=== PATIENT | male | born 1985 | race Caucasian/White ===

== ENCOUNTER 2023-04-21 10:59 | Inpatient (IN) | payer MEDICAID, OTHER ==
[2023-04-21] MEDS ORDERED: SODIUM CHLORIDE 0.9% 500 ML 500 ML IV ONE (11:49)
[2023-04-21 12:10] LABS: Basophils # (A) 0.1 k/uL (0-0.2); Basophils % (A) 1 %; Eosinophils # (A) 0.1 k/uL (0-0.7); Eosinophils % (A) 1 %; HCT 54.6 % (39.0-53.0); HGB 17.9 gm/dL (13.0-17.5); Lymphocytes # (A) 3.5 k/uL (1.0-4.8); Lymphocytes % (A) 32 %; MCH 29.7 pg (25.0-35.0); MCHC 32.7 g/dL (31.0-37.0); MCV 90.7 fL (80.0-100.0); Mean Platelet Volume 8.5; Monocytes # (A) 0.4 k/uL (0-1.0); Monocytes % (A) 4 %; Neutrophils # (A) 6.5 k/uL (1.3-7.7); Neutrophils % (A) 60 %; Platelet Count 460 k/uL (150-450); RBC 6.03 m/uL (4.30-5.90); RDW 13.5 % (11.5-15.5); WBC 10.8 k/uL (3.8-10.6)
--- NOTE | 2023-04-21 12:29 | ED ---
General Adult HPI - General Source: patient, EMS, RN notes reviewed, old records reviewed Mode of arrival: EMS Limitations: altered mental status <Bebeto Verdugo - Last Filed: 04/30/23 09:57> <Gerardo Plunkett - Last Filed: 05/02/23 07:15> - General Chief complaint: Arrhythmia/Palpitations Stated complaint: Chest Pain, Combative Time Seen by Provider: 04/21/23 11:15 - History of Present Illness Initial comments: This is a 37-year-old male who was brought in by EMS. According to the report we got the patient had a pickup order and when the police got there the patient became extremely aggressive and fought the police would not come in without them constrain him. Patient is unable to give any history most and does not answer any questions directly and he does not make any sense. The police left before I could interview them. No ecchymosis the patient any further history. There is a petition on the chart. Patient also was tased by the police officers while they were trying to apprehend him to bring him in (Bebeto Verdugo) - Related Data Home Medications Medication Instructions Recorded Confirmed No Known Home Medications 04/21/23 04/21/23 Allergies Allergy/AdvReac Type Severity Reaction Status Date / Time Pertussis Vaccines Allergy Unknown Verified 04/21/23 11:22 seasonal allergies AdvReac runny Uncoded 04/21/23 11:22 nose/congestion Review of Systems ROS Other: All systems not noted in ROS Statement are negative. <Bebeto Verdugo - Last Filed: 04/30/23 09:57> ROS Other: All systems not noted in ROS Statement are negative. <Gerardo Plunkett - Last Filed: 05/02/23 07:15> ROS Statement: Those systems with pertinent positive or pertinent negative responses have been documented in the HPI. Past Medical History Past Medical History: Unable to Obtain History of Any Multi-Drug Resistant Organisms: None Reported Past Surgical History: Unable to Obtain Past Psychological History: No Psychological Hx Reported Smoking Status: Current every day smoker Past Alcohol Use History: Occasional Past Drug Use History: None Reported, Marijuana - Past Family History Father Family Medical History: Unable to Obtain Mother Family Medical History: No Reported History <Bebeto Verdugo - Last Filed: 04/30/23 09:57> General Exam Limitations: altered mental status <Bebeto Verdugo - Last Filed: 04/30/23 09:57> - General Exam Comments Initial Comments: GENERAL: Patient is well-developed and well-nourished. Patient is nontoxic and well- hydrated and is in no acute distress. ENT: Neck is soft and supple. No significant lymphadenopathy is noted. Oropharynx is clear. Moist mucous membranes. Neck has full range of motion without eliciting any pain. EYES: The sclera were anicteric and conjunctiva were pink and moist. Extraocular movements were intact and pupils were equal round and reactive to light. Eyelids were unremarkable. PULMONARY: Unlabored respirations. Good breath sounds bilaterally. No audible rales rhonchi or wheezing was noted. CARDIOVASCULAR: Patient is tachycardic about 115 beats a minute ABDOMEN: Soft and nontender with normal bowel sounds. SKIN: Patient has an abrasion to his forehead with a small hematoma. Patient has ab rasion to his left index finger. patient has a small superficial abrasion to his chest. NEUROLOGIC: Patient is alert and oriented 1. Cranial nerves II through XII are grossly intact. Motor and sensory are also intact. Normal speech, volume and content. Symmetrical smile. MUSCULOSKELETAL: Normal extremities with adequate strength and full range of motion. LYMPHATICS: No significant lymphadenopathy is noted PSYCHIATRIC: Patient is babbling and making no sense at all (Bebeto Verdugo) Course Vital Signs 04/21/23 04/21/23 04/21/23 11:01 11:45 11:50 Temperature 99.2 F Pulse Rate 146 H 121 H 105 H Respiratory 20 18 19 Rate Blood Pressure 142/96 O2 Sat by Pulse 100 99 99 Oximetry 04/21/23 04/21/23 04/21/23 12:00 12:30 13:00 Temperature Pulse Rate 113 H 89 90 Respiratory 18 18 18 Rate Blood Pressure 112/102 112/102 134/92 O2 Sat by Pulse 98 Oximetry 04/21/23 04/21/23 04/21/23 13:30 14:00 14:30 Temperature Pulse Rate 93 95 90 Respiratory 16 18 18 Rate Blood Pressure 118/105 126/89 127/88 O2 Sat by Pulse 99 100 99 Oximetry 04/21/23 04/21/23 04/21/23 15:00 15:30 16:00 Temperature Pulse Rate 91 85 85 Respiratory 18 18 18 Rate Blood Pressure 125/87 122/84 129/84 O2 Sat by Pulse 99 98 Oximetry 04/21/23 04/21/23 04/21/23 16:30 17:00 17:30 Temperature Pulse Rate 79 76 87 Respiratory 18 18 18 Rate Blood Pressure 122/92 119/73 119/76 O2 Sat by Pulse 98 98 99 Oximetry 04/21/23 04/21/23 18:00 18:30 Temperature Pulse Rate 66 72 Respiratory 18 18 Rate Blood Pressure 121/77 115/86 O2 Sat by Pulse 99 Oximetry Medical Decision Making - Lab Data Result diagrams: 04/21/23 11:52 04/21/23 11:52 <Bebeto Verdugo - Last Filed: 04/30/23 09:57> - Lab Data Result diagrams: 04/21/23 11:52 04/21/23 11:52 <Gerardo Plunkett - Last Filed: 05/02/23 07:15> - Medical Decision Making EKG is interpreted myself. EKG shows a sinus tachycardia at 132 bpm [place] interval 212 QRS is 90 QT interval 3:30 QTC is 408. Patient's EKG shows no ST segment elevation or depression. Was pt. sent in by a medical professional or institution (, PA, FUR VAULT ATTENDANT, urgent care, hospital, or detention...) When possible be specific @ -Patient was brought in by police because he was under a court order Did you speak to anyone other than the patient for history (EMS, parent, family, police, friend...)? What history was obtained from this source @ -Police gave most of the history Did you review nursing and triage notes (agree or disagree)? Why? @ -[I reviewed and agree with nursing and triage notes] Were old charts reviewed (outside hosp., previous admission, EMS record, old EKG, old radiological studies, urgent care reports/EKG's, detention records)? Report findings @ -I reviewed prior charts on this patient Differential Diagnosis (chest pain, altered mental status, abdominal pain women, abdominal pain men, vaginal bleeding, weakness, fever, dyspnea, syncope, headache, dizziness, GI bleed, back pain, seizure, CVA, palpatations, mental health, musculoskeletal)? @ -Differential Mental Health Depression, anxiety, bipolar, psychosis, schizophrenia, borderline personality, situational depression, adjustment disorder, behavioral disorder, brain tumor, malingering, substance abuse, encephalopathy, medication reaction, dementia, hypothyroidism, degenerative neurologic disorder, lupus.... This is not meant to be all-inclusive list EKG interpreted by me (3pts min.). @ -[As above] X-rays interpreted by me (1pt min.). @ -Chest x-ray showed no acute abnormality CT interpreted by me (1pt min.). @ -CT of the brain showed no acute abnormality U/S interpreted by me (1pt. min.). @ -[None done] What testing was considered but not performed or refused? (CT, X-rays, U/S, labs)? Why? @ -[None] What meds were considered but not given or refused? Why? @ -[None] Did you discuss the management of the patient with other professionals (professionals i.e. , PA, FUR VAULT ATTENDANT, lab, RT, psych nurse, social science instructor, formation fracturing operator, teacher, customs officer, case management assistant)? Give summary @ -[No] Was smoking cessation discussed for >3mins.? @ -[No] Was critical care preformed (if so, how long)? @ -[No] Were there social determinants of health that impacted care today? How? (Homelessness, low income, unemployed, alcoholism, drug addiction, transportation, low edu. Level, literacy, decrease access to med. care, custodial, rehab)? @ -[No] Was there de-escalation of care discussed even if they declined (Discuss DNR or withdrawal of care, Hospice)? DNR status @ -[No] What co-morbidities impacted this encounter? (DM, HTN, Smoking, COPD, CAD, Cancer, CVA, ARF, Chemo, Hep., AIDS, mental health diagnosis, sleep apnea, morbid obesity)? @ -[None] Was patient admitted / discharged? Hospital course, mention meds given and route, prescriptions, significant lab abnormalities, going to OR and other pertinent info. @ -EPS is going to evaluate this patient. At this point in time Dr. Lisa will be taking over the care of this patient at 4 PM (Bebeto Verdugo) Was patient admitted / discharged? Hospital course, mention meds given and ro jose f, prescriptions, significant lab abnormalities, going to OR and other pertinent info. @ -[EPS evaluated the patient and patient was admitted to the mental health unit Undiagnosed new problem with uncertain prognosis? @ -[No] Drug Therapy requiring intensive monitoring for toxicity (Heparin, Nitro, Insulin, Cardizem)? @ -[No] Were any procedures done? @ -[No] Diagnosis/symptom? @ -[Acute psychosis Acute, or Chronic, or Acute on Chronic? @ -[Acute on chronic Uncomplicated (without systemic symptoms) or Complicated (systemic symptoms)? @ -[Uncomplicated Side effects of treatment? @ -[No] Exacerbation, Progression, or Severe Exacerbation? @ -[No] Poses a threat to life or bodily function? How? (Chest pain, USA, LA, pneumonia, PE, COPD, DKA, ARF, appy, cholecystitis, CVA, Diverticulitis, Homicidal, Suicidal, threat to staff... and all critical care pts) @ -[No] (Gerardo Plunkett) - Lab Data Lab Results 04/21/23 04/21/23 04/21/23 Range/Units 11:52 11:52 11:52 WBC 10.8 H (3.8-10.6) k/uL RBC 6.03 H (4.30-5.90) m/uL Hgb 17.9 H (13.0-17.5) gm/dL Hct 54.6 H (39.0-53.0) % MCV 90.7 (80.0-100.0) fL MCH 29.7 (25.0-35.0) pg MCHC 32.7 (31.0-37.0) g/dL RDW 13.5 (11.5-15.5) % Plt Count 460 H (150-450) k/uL MPV 8.5 Neutrophils % 60 % Lymphocytes % 32 % Monocytes % 4 % Eosinophils % 1 % Basophils % 1 % Neutrophils # 6.5 (1.3-7.7) k/uL Lymphocytes # 3.5 (1.0-4.8) k/uL Monocytes # 0.4 (0-1.0) k/uL Eosinophils # 0.1 (0-0.7) k/uL Basophils # 0.1 (0-0.2) k/uL Sodium 138 (137-145) mmol/L Potassium 4.0 (3.5-5.1) mmol/L Chloride 100 (98-107) mmol/L Carbon Dioxide 15 L (22-30) mmol/L Anion Gap 23 mmol/L BUN 13 (9-20) mg/dL Creatinine 1.04 (0.66-1.25) mg/dL Est GFR (CKD-EPI)AfAm >90 (>60 ml/min/1.73 sqM) Est GFR (CKD-EPI)NonAf >90 (>60 ml/min/1.73 sqM) Glucose 173 H (74-99) mg/dL Estimated Ave Glu mg/dL mg/dL Hemoglobin A1c (<=6.0) % Calcium 10.0 (8.4-10.2) mg/dL Total Bilirubin 0.7 (0.2-1.3) mg/dL AST 27 (17-59) U/L ALT 21 (4-49) U/L Alkaline Phosphatase 114 (38-126) U/L Troponin I (0.000-0.034) ng/mL Total Protein 7.6 (6.3-8.2) g/dL Albumin 5.0 (3.5-5.0) g/dL Triglycerides (0.00-149.00) mg/dL Cholesterol (0.00-200.00) mg/dL LDL Cholesterol, Calc (0.0-131.0) mg/dL VLDL Cholesterol, Calc (5.00-40.00) mg/dL HDL Cholesterol (40.00-60.00) mg/dL Cholesterol/HDL Ratio Ratio TSH (0.465-4.680) mIU/L Urine Color Yellow Urine Appearance Clear (Clear) Urine pH 6.0 (5.0-8.0) Ur Specific [place] 1.030 (1.001-1.035) Urine Protein 2+ H (Negative) Urine Glucose (UA) Negative (Negative) Urine Ketones Trace H (Negative) Urine Blood Moderate H (Negative) Urine Nitrite Negative (Negative) Urine Bilirubin Negative (Negative) Urine Urobilinogen <2.0 (<2.0) mg/dL Ur Leukocyte Esterase Negative (Negative) Urine RBC 1 (0-5) /hpf Urine WBC 3 (0-5) /hpf Ur Squamous Epith Cells 1 (0-4) /hpf Urine Bacteria Rare H (None) /hpf Hyaline Casts 18 H (0-2) /lpf Urine Mucus Many H (None) /hpf Urine Opiates Screen Not Detected (NotDetected) Ur Oxycodone Screen Not Detected (NotDetected) Urine Methadone Screen Not Detected (NotDetected) Ur Propoxyphene Screen Not Detected (NotDetected) Ur Barbiturates Screen Not Detected (NotDetected) U Tricyclic Antidepress Not Detected (NotDetected) Ur Phencyclidine Scrn Not Detected (NotDetected) Ur Amphetamines Screen Not Detected (NotDetected) U Methamphetamines Scrn Not Detected (NotDetected) U Benzodiazepines Scrn Not Detected (NotDetected) Urine Cocaine Screen Not Detected (NotDetected) U Marijuana (THC) Screen Detected H (NotDetected) Serum Alcohol <10 mg/dL SARS-CoV-2 (PCR) (Not Detectd) 04/21/23 04/21/23 04/21/23 Range/Units 11:52 11:52 11:52 WBC (3.8-10.6) k/uL RBC (4.30-5.90) m/uL Hgb (13.0-17.5) gm/dL Hct (39.0-53.0) % MCV (80.0-100.0) fL MCH (25.0-35.0) pg MCHC (31.0-37.0) g/dL RDW (11.5-15.5) % Plt Count (150-450) k/uL MPV Neutrophils % % Lymphocytes % % Monocytes % % Eosinophils % % Basophils % % Neutrophils # (1.3-7.7) k/uL Lymphocytes # (1.0-4.8) k/uL Monocytes # (0-1.0) k/uL Eosinophils # (0-0.7) k/uL Basophils # (0-0.2) k/uL Sodium (137-145) mmol/L Potassium (3.5-5.1) mmol/L Chloride (98-107) mmol/L Carbon Dioxide (22-30) mmol/L Anion Gap mmol/L BUN (9-20) mg/dL Creatinine (0.66-1.25) mg/dL Est GFR (CKD-EPI)AfAm (>60 ml/min/1.73 sqM) Est GFR (CKD-EPI)NonAf (>60 ml/min/1.73 sqM) Glucose (74-99) mg/dL Estimated Ave Glu mg/dL 123 mg/dL Hemoglobin A1c 5.9 (<=6.0) % Calcium (8.4-10.2) mg/dL Total Bilirubin (0.2-1.3) mg/dL AST (17-59) U/L ALT (4-49) U/L Alkaline Phosphatase (38-126) U/L Troponin I <0.012 (0.000-0.034) ng/mL Total Protein (6.3-8.2) g/dL Albumin (3.5-5.0) g/dL Triglycerides 184.00 H (0.00-149.00) mg/dL Cholesterol 188.00 (0.00-200.00) mg/dL LDL Cholesterol, Calc 103.5 (0.0-131.0) mg/dL VLDL Cholesterol, Calc 36.80 (5.00-40.00) mg/dL HDL Cholesterol 47.70 (40.00-60.00) mg/dL Cholesterol/HDL Ratio 3.94 Ratio TSH 1.150 (0.465-4.680) mIU/L Urine Color Urine Appearance (Clear) Urine pH (5.0-8.0) Ur Specific [place] (1.001-1.035) Urine Protein (Negative) Urine Glucose (UA) (Negative) Urine Ketones (Negative) Urine Blood (Negative) Urine Nitrite (Negative) Urine Bilirubin (Negative) Urine Urobilinogen (<2.0) mg/dL Ur Leukocyte Esterase (Negative) Urine RBC (0-5) /hpf Urine WBC (0-5) /hpf Ur Squamous Epith Cells (0-4) /hpf Urine Bacteria (None) /hpf Hyaline Casts (0-2) /lpf Urine Mucus (None) /hpf Urine Opiates Screen (NotDetected) Ur Oxycodone Screen (NotDetected) Urine Methadone Screen (NotDetected) Ur Propoxyphene Screen (NotDetected) Ur Barbiturates Screen (NotDetected) U Tricyclic Antidepress (NotDetected) Ur Phencyclidine Scrn (NotDetected) Ur Amphetamines Screen (NotDetected) U Methamphetamines Scrn (NotDetected) U Benzodiazepines Scrn (NotDetected) Urine Cocaine Screen (NotDetected) U Marijuana (THC) Screen (NotDetected) Serum Alcohol mg/dL SARS-CoV-2 (PCR) (Not Detectd) 04/21/23 Range/Units 17:32 WBC (3.8-10.6) k/uL RBC (4.30-5.90) m/uL Hgb (13.0-17.5) gm/dL Hct (39.0-53.0) % MCV (80.0-100.0) fL MCH (25.0-35.0) pg MCHC (31.0-37.0) g/dL RDW (11.5-15.5) % Plt Count (150-450) k/uL MPV Neutrophils % % Lymphocytes % % Monocytes % % Eosinophils % % Basophils % % Neutrophils # (1.3-7.7) k/uL Lymphocytes # (1.0-4.8) k/uL Monocytes # (0-1.0) k/uL Eosinophils # (0-0.7) k/uL Basophils # (0-0.2) k/uL Sodium (137-145) mmol/L Potassium (3.5-5.1) mmol/L Chloride (98-107) mmol/L Carbon Dioxide (22-30) mmol/L Anion Gap mmol/L BUN (9-20) mg/dL Creatinine (0.66-1.25) mg/dL Est GFR (CKD-EPI)AfAm (>60 ml/min/1.73 sqM) Est GFR (CKD-EPI)NonAf (>60 ml/min/1.73 sqM) Glucose (74-99) mg/dL Estimated Ave Glu mg/dL mg/dL Hemoglobin A1c (<=6.0) % Calcium (8.4-10.2) mg/dL Total Bilirubin (0.2-1.3) mg/dL AST (17-59) U/L ALT (4-49) U/L Alkaline Phosphatase (38-126) U/L Troponin I (0.000-0.034) ng/mL Total Protein (6.3-8.2) g/dL Albumin (3.5-5.0) g/dL Triglycerides (0.00-149.00) mg/dL Cholesterol (0.00-200.00) mg/dL LDL Cholesterol, Calc (0.0-131.0) mg/dL VLDL Cholesterol, Calc (5.00-40.00) mg/dL HDL Cholesterol (40.00-60.00) mg/dL Cholesterol/HDL Ratio Ratio TSH (0.465-4.680) mIU/L Urine Color Urine Appearance (Clear) Urine pH (5.0-8.0) Ur Specific [place] (1.001-1.035) Urine Protein (Negative) Urine Glucose (UA) (Negative) Urine Ketones (Negative) Urine Blood (Negative) Urine Nitrite (Negative) Urine Bilirubin (Negative) Urine Urobilinogen (<2.0) mg/dL Ur Leukocyte Esterase (Negative) Urine RBC (0-5) /hpf Urine WBC (0-5) /hpf Ur Squamous Epith Cells (0-4) /hpf Urine Bacteria (None) /hpf Hyaline Casts (0-2) /lpf Urine Mucus (None) /hpf Urine Opiates Screen (NotDetected) Ur Oxycodone Screen (NotDetected) Urine Methadone Screen (NotDetected) Ur Propoxyphene Screen (NotDetected) Ur Barbiturates Screen (NotDetected) U Tricyclic Antidepress (NotDetected) Ur Phencyclidine Scrn (NotDetected) Ur Amphetamines Screen (NotDetected) U Methamphetamines Scrn (NotDetected) U Benzodiazepines Scrn (NotDetected) Urine Cocaine Screen (NotDetected) U Marijuana (THC) Screen (NotDetected) Serum Alcohol mg/dL SARS-CoV-2 (PCR) Not Detected (Not Detectd) Disposition <Bebeto Verdugo - Last Filed: 04/30/23 09:57> Is patient prescribed a controlled substance at d/c from ED?: No <Gerardo Plunkett - Last Filed: 05/02/23 07:15> Clinical Impression: Acute psychosis Disposition: TRANSFER TO PSYCH HOSP/UNIT Condition: Fair
[2023-04-21 12:31] LABS: ALT 21 U/L (4-49); AST 27 U/L (17-59); African American GFR (CKD) >90 (>60 ml/min/1.73 sqM); Alcohol <10 mg/dL; Alkaline Phosphatase 114 U/L (38-126); Anion Gap 23 mmol/L; Blood Urea Nitrogen 13 mg/dL (9-20); Carbon Dioxide 15 mmol/L (22-30); Chloride 100 mmol/L (98-107); Glucose 173 mg/dL (74-99); Non-African American GFR(CKD) >90 (>60 ml/min/1.73 sqM); Sodium 138 mmol/L (137-145); Total Bilirubin 0.7 mg/dL (0.2-1.3); Total Protein 7.6 g/dL (6.3-8.2)
[2023-04-21 12:35] LABS: Amphetamine Screen,Urine Not Detected (NotDetected); Barbiturate Screen,Urine Not Detected (NotDetected); Benzodiazepines Screen,Urine Not Detected (NotDetected); Cocaine Screen,Urine Not Detected (NotDetected); Methadone Screen, Urine Not Detected (NotDetected); Opiate Screen,Urine Not Detected (NotDetected); Oxycodone Screen, Urine Not Detected (NotDetected); Phencyclidine Screen,Urine Not Detected (NotDetected); Tricyclic Antidepressant,Urine Not Detected (NotDetected); Urn Cannabinoid Scrn Detected (NotDetected)
[2023-04-21 12:42] LABS: Appearance,Urine Clear (Clear); Bacteria,Urine Rare /hpf; Bilirubin,Urine Negative (Negative); Blood,Urine Moderate (Negative); Color,Urine Yellow; Glucose,Urine (UA) Negative (Negative); Hyaline Casts,Urine 18 /lpf (0-2); Ketones,Urine Trace (Negative); Leukocyte Esterase,Urine Negative (Negative); Mucus,Urine Many /hpf; Nitrite,Urine Negative (Negative); Protein,Urine 2+ (Negative); RBC,Urine 1 /hpf (0-5); Squamous Epithelial Cell,Urine 1 /hpf (0-4); Urobilinogen,Urine <2.0 mg/dL (<2.0); WBC,Urine 3 /hpf (0-5)
--- NOTE | 2023-04-21 12:46 | XR ---
EXAMINATION TYPE: XR chest 2V DATE OF EXAM: 04/21/2023 COMPARISON: None INDICATION: Altered mental status TECHNIQUE: Frontal and lateral views of the chest are obtained. FINDINGS: The heart size is normal. The pulmonary vasculature is normal. The lungs are clear. IMPRESSION: 1. No acute pulmonary process.
--- NOTE | 2023-04-21 12:49 | CT ---
EXAMINATION TYPE: CT brain wo con DATE OF EXAM: 04/21/2023 COMPARISON: None INDICATION: AMS DLP: 1066.4 mGycm, Automated exposure control for dose reduction was used. CONTRAST: None CT of the brain is performed utilizing 3 mm thick sections through the posterior fossa and 3 mm thick sections through the remaining calvarium. Study is performed within 24 hours of arrival to the hosp ital. No abnormal hyperdensity is present to suggest an acute intracranial hemorrhage. No mass lesion is evident. No acute infarcts are evident. Ventricles and sulci are appropriate for the patient age. Paranasal sinuses and mastoid air cells within the [id number] are clear. IMPRESSION: 1. No acute intracranial process. Follow-up MRI can be performed as clinically indicated
[2023-04-21] MEDS ORDERED: LORazepam 1 MG TAB PO PRN (21:36)
[2023-04-21] MEDS ORDERED: MAG HYDROX/AL HYDROX/SIMETH 30 ML CUP PO PRN (21:36)
[2023-04-21] MEDS ORDERED: MAGNESIUM HYDROXIDE 2,400 MG/30 ML CUP PO PRN (21:36)
[2023-04-21] MEDS ORDERED: IBUPROFEN 600 MG TAB PO PRN (21:36)
[2023-04-21] MEDS ORDERED: haloperidoL 5 MG TAB PO PRN (21:36)
[2023-04-21] MEDS ORDERED: ACETAMINOPHEN TAB 325 MG TAB PO PRN (21:36)
[2023-04-21] MEDS ORDERED: QUEtiapine 100 MG TAB PO PRN (21:42)
[2023-04-22] MEDS: NICOTINE 14MG/24HR PATCH TRANSDERM SCH (08:10)
[2023-04-22 09:00] LABS: Chol/HDL Ratio 3.94 Ratio; LDL Cholesterol,Calculated 103.5 mg/dL (0.0-131.0)
[2023-04-22] MEDS ORDERED: traZODone HCL 100 MG TAB PO PRN (12:28)
[2023-04-22] MEDS ORDERED: HALOPERIDOL LACTATE 5 MG/ML 1 ML VIAL IM PRN (12:29)
[2023-04-22] MEDS ORDERED: LORazepam 2 MG/ML INJ IM PRN (12:29)
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
[2023-04-22] MEDS: PALIPERIDONE 3 MG TAB.ER.24 PO SCH (20:10)
--- NOTE | 2023-04-23 02:45 | P.PN ---
Progress Note - Text Progress Note Date: 04/23/23 Attempted to see the patient in the mental health unit. Informed by the mental health unit RNs that the patient has been actively psychotic and inappropriate for evaluation this time.
[2023-04-23] MEDS: NICOTINE 14MG/24HR PATCH TRANSDERM SCH (09:34)
[2023-04-23] MEDS: PALIPERIDONE 3 MG TAB.ER.24 PO SCH ×2 (09:35→21:03)
--- NOTE | 2023-04-23 11:21 | P.PN ---
Progress Note - Text Progress Note Date: 04/23/23 Interval History: Patient was seen laying in bed and was uncooperative with health science writer. Is not compliant with meds, and very hostile and angry with health science writer. Just stated it was a "stupid question to ask if he hears voices, because he hears us". refused tnswer further questions. he has been refusing meds. Mental Status Exam: General Appearance: Patient appears to be stated age is alert, does not cooperate. Patient appears to have poor hygiene and grooming. Disheveled. Behavior: hostile, angry, inappropriate uncooperative Speech: Patient's speech is fluent and nonpressured. concrete, threatening tone. mocking. Mood/Affect: Angry, affect is congruent and constricted. Suicidality/Homicidality: patient refused to answer Perceptions: patient refused to answer Though content/process: There is evidence of delusional thought content Memory and concentration: unable to gather Judgment and insight: poor/impulsive IMPRESSIONS: schizophrenia cannabis use disorder nicotine dependance PLAN: -Patient is admitted under involuntary status to MHU for stabilization of psychi atric symptoms and safety. Patient has not signed adult voluntary form and medication consent and is placed in patient's chart. -Medications : Invega 3 po bid for mood stabilization/psychosis. trazadone 100mg qhs prn for insomnia. -Ativan and Haldol PRN for agitation/aggression -NRT - nicotine patch -SW on board for discharge planning. Encouraged the patient to participate in milieu. Full hearing 04/30, awaiting deferral with manager of clinical.
[2023-04-24] MEDS: NICOTINE 14MG/24HR PATCH TRANSDERM SCH (08:08)
[2023-04-24] MEDS: PALIPERIDONE 3 MG TAB.ER.24 PO SCH ×2 (08:08→21:33)
--- NOTE | 2023-04-24 11:00 | P.PN ---
Progress Note - Text Progress Note Date: 04/24/23 Interval History: Patient was seen laying in bed and was uncooperative with check writer salesperson. Patient is refusing all meds, and very hostile and angry with check writer salesperson again today. Repeating the questions check writer salesperson asked him back to check writer salesperson, without answering refused to answer further questions. Continues to have very poor insight and judgment. Mild improvement in hostility towards check writer salesperson today. Mental Status Exam: General Appearance: Patient appears to be stated age is alert, does not c ooperate. Patient appears to have poor hygiene and grooming. Disheveled. Behavior: hostile, angry, inappropriate uncooperative Speech: Patient's speech is fluent and nonpressured. concrete, threatening tone. mocking. Mood/Affect: Angry, affect is congruent and constricted. Suicidality/Homicidality: patient refused to answer Perceptions: patient refused to answer Though content/process: There is evidence of delusional thought content Memory and concentration: unable to gather Judgment and insight: poor/impulsive IMPRESSIONS: schizophrenia cannabis use disorder nicotine dependance PLAN: -Patient is admitted under involuntary status to MHU for stabilization of psychiatric symptoms and safety. Patient has not signed adult voluntary form and medication consent and is placed in patient's chart. -Medications : Invega 3 po bid for mood stabilization/psychosis. trazadone 100mg qhs prn for insomnia. Patient is refusing medications. -Ativan and Haldol PRN for agitation/aggression -NRT - nicotine patch -SW on board for discharge planning. Encouraged the patient to participate in milieu. Full hearing 05/07, patient did not defer with pecan gatherer.
--- NOTE | 2023-04-24 21:22 | P.CONS ---
History of Present Illness - Reason for Consult Consult date: 04/24/23 - History of Present Illness The patient is a 37-year-old male with no known PMH who was brought to the emergency room under police custody for agitation and aggressive behavior. The patient was admitted to the mental health unit where he was seen and evaluated. The patient was guarded and refused to answer most questions and also refused a physical examination. He stated that he has no physical complaints of the time of interview and denied experiencing chest discomfort, shortness of breath, fever, chills, cough, nausea, vomiting, abdominal pain, diarrhea. Denied illicit substance, alcohol, or tobacco use. Review of systems: Pertinent positives and negatives as discussed in HPI, a complete review of systems was performed and all other systems are negative. Physical examination: General: non toxic, no distress, appears at stated age, normal weight Eyes: no lid lag, anicteric sclera ENT: Nose and ears atraumatic Mouth: no lip lesion Cardiovascular: Refused Lungs: Refused examination Abdominal: Refused examination Ext: no gross muscle atrophy, no contractures Neuro: Moving all extremities, refused further examination Psych: Guarded and paranoid affect Assessment: Leukocytosis, likely related to acute stressor with no signs of active infection Marijuana abuse Hyperglycemia Psychosis Imaging: None performed Data Review: Laboratory evaluation was reviewed with him on 10.8, hemoglobin 17.9, glucose 173, with urine toxicology Positive for marijuana Plan: Monitor CBC Defer management of psychosis to primary psychiatry service Thank you for allowing us to participate in the care of this patient. We will follow peripherally. Do not hesitate to contact us with questions. Someone can be reached from the [facility] hospitalist group at all hours of the day at [phone]. Past Medical History Past Medical History: Unable to Obtain History of Any Multi-Drug Resistant Organisms: Unobtainable Past Surgical History: Unable to Obtain Past Anesthesia/Blood Transfusion Reactions: Unable to Obtain Past Psychological History: Schizophrenia Smoking Status: Current every day smoker Past Alcohol Use History: None Reported Past Drug Use History: Marijuana - Past Family History Father Family Medical History: Unable to Obtain Mother Family Medical History: No Reported History Medications and Allergies Home Medications Medication Instructions Recorded Confirmed Type No Known Home Medications 04/21/23 04/21/23 History Allergies Allergy/AdvReac Type Severity Reaction Status Date / Time Pertussis Vaccines Allergy Unknown Verified 04/21/23 11:22 seasonal allergies AdvReac runny Uncoded 04/21/23 11:22 nose/congestion Results CBC & Chem 7: 04/21/23 11:52 04/21/23 11:52
[2023-04-25] MEDS: NICOTINE 14MG/24HR PATCH TRANSDERM SCH (09:34)
[2023-04-25] MEDS: PALIPERIDONE 3 MG TAB.ER.24 PO SCH ×2 (09:34→19:58)
--- NOTE | 2023-04-25 10:57 | P.PN ---
Progress Note - Text Progress Note Date: 04/25/23 Interval History: Patient was seen laying in bed and was uncooperative with radio news writer again today. Patient is refusing all meds. When asked patient how he was feeling patient said, "I'm doing okay man" patient states that he is not sleeping, however it was noted in his chart that he slept a solid 10 hours last night, and when asked if he is hearing voices, he said, "I can hear your voice like a normal person" Refused to answer further questions. Continues to have very poor insight and judgment. Mild improvement in hostility towards radio news writer. Patient did shower yesterday. Mainly isolating to his room. Does come out for most meals. Mental Status Exam: General Appearance: Patient appears to be stated age is alert, does not cooperate. Patient appears to have poor hygiene and grooming. Disheveled. Behavior: hostile, angry, inappropriate uncooperative, irritable Speech: Patient's speech is fluent and nonpressured. concrete, threatening tone. mocking. Mood/Affect: Angry, affect is congruent and constricted. Suicidality/Homicidality: patient refused to answer Perceptions: patient refused to answer Though content/process: There is evidence of delusional thought content Memory and concentration: unable to gather Judgment and insight: poor/impulsive IMPRESSIONS: schizophrenia cannabis use disorder nicotine dependance PLAN: -Patient is admitted under involuntary status to MHU for stabilization of psychiatric symptoms and safety. Patient has not signed adult voluntary form and medication consent and is placed in patient's chart. -Medications : Invega 3 po bid for mood stabilization/psychosis. trazadone 100mg qhs prn for insomnia. Patient is refusing medications. -Ativan and Haldol PRN for agitation/aggression -NRT - nicotine patch -SW on board for discharge planning. Encouraged the patient to participate in milieu. Full hearing 05/07, patient did not defer with trust and estates attorney.
[2023-04-26] MEDS: PALIPERIDONE 3 MG TAB.ER.24 PO SCH ×2 (08:42→20:06)
[2023-04-26] MEDS: NICOTINE 14MG/24HR PATCH TRANSDERM SCH (08:42)
--- NOTE | 2023-04-26 10:23 | P.PN ---
Subjective Progress Note Date: 04/26/23 Principal diagnosis: Schizophrenia Interval History: Patient was seen laying in bed. Before he entered the room I heard him talking loudly to nobody in particular I asked him who he was talking to and he responded with, "what were you talking to." I told him I was talking to him he said, "if you wanted put a Snoopy on the wall instead of all this garbage I would do better." He was loud, uncooperative and irritable I felt slightly in danger if I didn't walk on egg shells. Patient is refusing all meds. When asked how he slept he said, "yeah man, how did I sleep?" Mental Status Exam: None of his responses fit anything that is happening or the question asked. General Appearance: Patient appears to be stated age is alert, does not cooperate. Patient appears to have poor hygiene and grooming. Disheveled. Behavior: hostile, angry, inappropriate uncooperative, irritable Speech: Patient's speech is fluent and nonpressured. concrete, threatening tone. mocking. Mood/Affect: Angry,. Suicidality/Homicidality: patient refused to answer Though content/process: There is evidence of delusional thought content and of hallucinating because of talking loudly to no one in the room Memory and concentration: unable to gather Judgment and insight: poor/impulsive IMPRESSIONS: schizophrenia cannabis use disorder nicotine dependance PLAN: No change at this time -Patient is admitted under involuntary status to MHU for stabilization of psychiatric symptoms and safety. Patient has not signed adult voluntary form and medication consent and is placed in patient's chart. -Medications : Invega 3 po bid for mood stabilization/psychosis. trazadone 100mg qhs prn for insomnia. Patient is refusing medications. -Ativan and Haldol PRN for agitation/aggression -NRT - nicotine patch -SW on board for discharge planning. Encouraged the patient to participate in milieu. Full hearing 05/07, patient did not defer with ip litigation associate. For her chair broke down on the floor Objective - Vital Signs Vital signs: Vital Signs Temp 97.9 F 04/21/23 22:31 Pulse 80 04/21/23 22:31 Resp 18 04/21/23 22:31 BP 142/94 04/21/23 22:31 Pulse Ox 99 04/21/23 22:31 FiO2 - Labs CBC & Chem 7: 04/21/23 11:52 04/21/23 11:52
--- NOTE | 2023-04-27 08:36 | P.PN ---
Subjective Progress Note Date: 04/27/23 Principal diagnosis: Schizophrenia Interval History: Patient was seen laying in bed. The light was off and was dark although he was awake, he had his head covered with the blanket. I asked him if he wanted to have some breakfast that they were serving breakfast. He said, "I know you and you stink he better get out." I asked him where he knew me from.(We did talk briefly yesterday) he said him" I've never met you before I just can smell you and you're no good.) Mental Status Exam: None of his responses fit anything that is happening or the question asked. General Appearance: Patient appears to be stated age is alert, does not cooperate. Patient appears to have poor hygiene and grooming. Disheveled. Behavior: hostile, angry, inappropriate uncooperative, irritable Speech: Patient's speech is fluent and nonpressured. concrete, threatening tone. mocking. Mood/Affect: Angry,. Suicidality/Homicidality: patient refused to answer Though content/process: There is evidence of delusional thought content and of hallucinating because of talking loudly to no one in the room Memory and concentration: unable to gather Judgment and insight: poor/impulsive IMPRESSIONS: schizophrenia cannabis use disorder nicotine dependance PLAN: No change at this time -Patient is admitted under involuntary status to MHU for stabilization of psychiatric symptoms and safety. Patient has not signed adult voluntary form and medication consent and is placed in patient's chart. -Medications : Invega 3 po bid for mood stabilization/psychosis. trazadone 100mg qhs prn for insomnia. Patient is refusing medications. -Ativan and Haldol PRN for agitation/aggression -NRT - nicotine patch -SW on board for discharge planning. Encouraged the patient to participate in milieu. Full hearing 05/07, patient did not defer with assistant city attorney. For her chair broke down on the floor Objective - Vital Signs Vital signs: Vital Signs Temp 98.0 F 04/26/23 09:49 Pulse 105 H 04/26/23 09:49 Resp 16 04/26/23 09:49 BP 139/83 04/26/23 09:49 Pulse Ox 99 04/21/23 22:31 FiO2 - Labs CBC & Chem 7: 04/21/23 11:52 04/21/23 11:52
[2023-04-27] MEDS: NICOTINE 14MG/24HR PATCH TRANSDERM SCH (08:45)
[2023-04-27] MEDS: PALIPERIDONE 3 MG TAB.ER.24 PO SCH ×2 (08:45→19:57)
[2023-04-28] MEDS: NICOTINE 14MG/24HR PATCH TRANSDERM SCH (10:01)
[2023-04-28] MEDS: PALIPERIDONE 3 MG TAB.ER.24 PO SCH ×2 (10:02→22:06)
--- NOTE | 2023-04-28 11:34 | P.PN ---
Subjective Progress Note Date: 04/28/23 Principal diagnosis: IMPRESSIONS: schizophrenia acute Intermittent explosive disorder cannabis use disorder nicotine dependance Patient Name: Mp Dominguez Date of : 85 Patient Status: Inpatient Attending Provider: Bunny Burnett Date: 04/28/23 Subjective data: The patient was attempted to be seen today Patient was in the shower and could be heard talking to himself loudly and having arguments with himself or responding to internal stimuli or the voices Patient then walked out and seemed to be angry and when past this adjusto writer operator When asked to have a conversation patient to make some bizarre statements and walked away he remained delusional and preoccupied and continues to respond to internal stimuli with loud verbal output Mental status examination: General Appearance: Patient had just stepped out of the shower and was wrapped in a towel Behavior: hostile, angry, inappropriate uncooperative, irritable Speech: Patient's speech is fluent and nonpressured. concrete, threatening tone. mocking. Mood/Affect: Angry,. Suicidality/Homicidality: patient refused to answer Though content/process: Patient is delusional and paranoid and projective Memory and concentration: unable to gather Judgment and insight: poor/impulsive IMPRESSIONS: schizophrenia cannabis use disorder nicotine dependance PLAN: No change at this time -Patient is admitted under involuntary status to [facility] for stabilization of psychiatric symptoms and safety. Patient has not signed adult voluntary form and medication consent and is placed in patient's chart. -Medications : Invega 3 po bid for mood stabilization/psychosis. trazadone 100mg qhs prn for insomnia. Patient is refusing medications. -Ativan and Haldol PRN for agitation/aggression -NRT - nicotine patch - on board for discharge planning. Encouraged the patient to participate in milieu. Full hearing 05/07, patient did not defer with assistant county attorney. Continue monitoring for any behavioral issues and appropriate safety precautions as patient has history of aggression and impulsivity Clayton Jay M.D. Objective - Vital Signs Vital signs: Vital Signs Temp 98.0 F 04/26/23 09:49 Pulse 105 H 04/26/23 09:49 Resp 16 04/26/23 09:49 BP 139/83 04/26/23 09:49 Pulse Ox 99 04/21/23 22:31 FiO2 - Labs CBC & Chem 7: 04/21/23 11:52 04/21/23 11:52
[2023-04-29] MEDS: PALIPERIDONE 3 MG TAB.ER.24 PO SCH ×2 (08:06→21:02)
[2023-04-29] MEDS: NICOTINE 14MG/24HR PATCH TRANSDERM SCH (08:06)
--- NOTE | 2023-04-29 12:05 | P.PN ---
Subjective Progress Note Date: 04/29/23 Principal diagnosis: IMPRESSIONS: schizophrenia acute Intermittent explosive disorder cannabis use disorder nicotine dependance Patient Name: Mp Dominguez Date of : 85 Patient Status: Inpatient Attending Provider: Bunny Burnett Date: 04/29/23 Subjective data: The patient was attempted to be seen today Patient was in his room and talking to himself On approach patient became louder angry projective and intimidating Patient seemed to escalate and further interviewing was stopped Patient did not respond to any specific questions asked but seemed to calm her question and become louder and paranoid Mental status examination: General Appearance: Casually groomed Behavior: hostile, angry, inappropriate uncooperative, irritable Speech: Patient's speech is fluent and nonpressured. concrete, threatening tone. mocking. Mood/Affect: Angry,. Suicidality/Homicidality: patient refused to answer Though content/process: Patient is delusional and paranoid and projective Memory and concentration: unable to gather Judgment and insight: poor/impulsive IMPRESSIONS: schizophrenia cannabis use disorder nicotine dependance PLAN: No change at this time -Patient is admitted under involuntary status to [facility] for stabilization of psychiatric symptoms and safety. Patient has not signed adult voluntary form and medication consent and is placed in patient's chart. -Medications : Invega 3 po bid for mood stabilization/psychosis. trazadone 100mg qhs prn for insomnia. Patient is refusing medications. -Ativan and Haldol PRN for agitation/aggression -NRT - nicotine patch -SW on board for discharge planning. Encouraged the patient to participate in milieu. Full hearing 05/07, patient did not defer with tax associate attorney. Continue monitoring for any behavioral issues and appropriate safety precautions as patient has history of aggression and impulsivity Clayton Jay M.D. Objective - Vital Signs Vital signs: Vital Signs Temp 98.0 F 04/26/23 09:49 Pulse 105 H 04/26/23 09:49 Resp 16 04/26/23 09:49 BP 139/83 04/26/23 09:49 Pulse Ox 99 04/21/23 22:31 FiO2 - Labs CBC & Chem 7: 04/21/23 11:52 04/21/23 11:52
[2023-04-30] MEDS: PALIPERIDONE 3 MG TAB.ER.24 PO SCH ×2 (08:08→21:29)
[2023-04-30] MEDS: NICOTINE 14MG/24HR PATCH TRANSDERM SCH (08:08)
--- NOTE | 2023-04-30 11:17 | P.PN ---
Subjective Progress Note Date: 04/30/23 Principal diagnosis: IMPRESSIONS: schizophrenia acute Intermittent explosive disorder cannabis use disorder nicotine dependance Patient Name: Mp Dominguez Date of : 85 Patient Status: Inpatient Attending Provider: Bunny Burnett Date: 04/30/23 Subjective data: The patient was attempted to be seen today Patient was in his room and talking to himself Patient could be hurt outside very was arguing with himself and seemed to get louder and at times argumentative angry and projective He was felt best to leave the patient alone to White any confrontation or escalation Mental status examination: General Appearance: Casually groomed Behavior: hostile, angry, inappropriate uncooperative, irritable Speech: Patient's speech is fluent and nonpressured. concrete, threatening tone. mocking. Mood/Affect: Angry,. Suicidality/Homicidality: patient refused to answer Though content/process: Patient is delusional and paranoid and projective Memory and concentration: unable to gather Judgment and insight: poor/impulsive IMPRESSIONS: schizophrenia cannabis use disorder nicotine dependance PLAN: No change at this time -Patient is admitted under involuntary status to [facility] for stabilization of psychiatric symptoms and safety. Patient has not signed adult voluntary form and medication consent and is placed in patient's chart. -Medications : Invega 3 po bid for mood stabilization/psychosis. trazadone 100mg qhs prn for insomnia. Patient is refusing medications. -Ativan and Haldol PRN for agitation/aggression -NRT - nicotine patch -SW on board for discharge planning. Encouraged the patient to participate in milieu. Full hearing 05/07, patient did not defer with ip technology transactions attorney. Continue monitoring for any behavioral issues and appropriate safety precautions as patient has history of aggression and impulsivity Clayton Jay M.D. Objective - Vital Signs Vital signs: Vital Signs Temp 98.0 F 04/26/23 09:49 Pulse 105 H 04/26/23 09:49 Resp 16 04/26/23 09:49 BP 139/83 04/26/23 09:49 Pulse Ox 99 04/21/23 22:31 FiO2 - Labs CBC & Chem 7: 04/21/23 11:52 04/21/23 11:52
[2023-05-01] MEDS: PALIPERIDONE 3 MG TAB.ER.24 PO SCH ×2 (08:09→20:00)
[2023-05-01] MEDS: NICOTINE 14MG/24HR PATCH TRANSDERM SCH (08:09)
--- NOTE | 2023-05-01 12:51 | P.PN ---
Subjective Progress Note Date: 05/01/23 Principal diagnosis: IMPRESSIONS: schizophrenia acute Intermittent explosive disorder cannabis use disorder nicotine dependance Patient Name: Mp Dominguez Date of : 85 Patient Status: Inpatient Attending Provider: Bunny Burnett Date: 05/01/23 Subjective data: Interaction was similar to the previous day The patient was attempted to be seen today Patient was in his room and talking to himself Patient could be hurt outside very was arguing with himself and seemed to get louder and at times argumentative angry and projective He was felt best to leave the patient alone to avoid any confrontation or escalation Mental status examination: General Appearance: Casually groomed Behavior: hostile, angry, inappropriate uncooperative, irritable Speech: Patient's speech is fluent and nonpressured. concrete, threatening tone. mocking. Mood/Affect: Angry,. Suicidality/Homicidality: patient refused to answer Though content/process: Patient is delusional and paranoid and projective Memory and concentration: unable to gather Judgment and insight: poor/impulsive IMPRESSIONS: schizophrenia cannabis use disorder nicotine dependance PLAN: No change at this time -Patient is admitted under involuntary status to [facility] for stabilization of psychiatric symptoms and safety. Patient has not signed adult voluntary form and medication consent and is placed in patient's chart. -Medications : Invega 3 po bid for mood stabilization/psychosis. trazadone 100mg qhs prn for insomnia. Patient is refusing medications. -Ativan and Haldol PRN for agitation/aggression -NRT - nicotine patch -SW on board for discharge planning. Encouraged the patient to participate in milieu. Full hearing 05/07, patient did not defer with divorce attorney. Continue monitoring for any behavioral issues and appropriate safety precautions as patient has history of aggression and impulsivity Clayton Jay M.D. Objective - Vital Signs Vital signs: Vital Signs Temp 98.0 F 04/26/23 09:49 Pulse 105 H 04/26/23 09:49 Resp 16 04/26/23 09:49 BP 139/83 04/26/23 09:49 Pulse Ox 99 04/21/23 22:31 FiO2 - Labs CBC & Chem 7: 04/21/23 11:52 04/21/23 11:52
[2023-05-02] MEDS: NICOTINE 14MG/24HR PATCH TRANSDERM SCH (08:05)
[2023-05-02] MEDS: PALIPERIDONE 3 MG TAB.ER.24 PO SCH ×2 (08:05→22:17)
--- NOTE | 2023-05-02 10:28 | P.PN ---
Subjective Progress Note Date: 05/02/23 Principal diagnosis: IMPRESSIONS: schizophrenia acute Intermittent explosive disorder cannabis use disorder nicotine dependance Patient Name: Mp Dominguez Date of : 85 Patient Status: Inpatient Attending Provider: Bunny Burnett Date: 05/02/23 Subjective data: Interaction was similar to the previous day The patient was attempted to be seen today Patient was in his room and talking to himself Patient could be heard outside very was arguing with himself and seemed to get louder and at times argumentative angry and projective Addended to Dr. the patient although he remains very paranoid easily irritated and hostile Patient remains very projective and is difficult to have any type of constructive interaction with this patient at this time Mental status examination: General Appearance: Casually groomed Behavior: hostile, angry, inappropriate uncooperative, irritable Speech: Patient's speech is fluent and nonpressured. concrete, threatening tone. mocking. Mood/Affect: Angry,. Suicidality/Homicidality: patient refused to answer Though content/process: Patient is delusional and paranoid and projective Memory and concentration: unable to gather Judgment and insight: poor/impulsive IMPRESSIONS: schizophrenia cannabis use disorder nicotine dependance PLAN: No change at this time -Patient is admitted under involuntary status to [facility] for stabilization of psychiatric symptoms and safety. Patient has not signed adult voluntary form and medication consent and is placed in patient's chart. -Medications : Invega 3 po bid for mood stabilization/psychosis. trazadone 100mg qhs prn for insomnia. Patient is refusing medications. -Ativan and Haldol PRN for agitation/aggression -NRT - nicotine patch - on board for discharge planning. Encouraged the patient to participate in milieu. Full hearing 05/07, patient did not defer with patent prosecution attorney. Continue monitoring for any behavioral issues and appropriate safety precautions as patient has history of aggression and impulsivity Clayton Jay M.D. Objective - Vital Signs Vital signs: Vital Signs Temp 97.9 F 05/02/23 09:33 Pulse 86 05/02/23 09:33 Resp 20 05/02/23 09:33 BP 120/71 05/02/23 09:33 Pulse Ox 99 04/21/23 22:31 FiO2 Intake & Output 05/01/23 05/02/23 05/02/23 18:59 06:59 18:59 Weight 62.142 kg - Labs CBC & Chem 7: 04/21/23 11:52 04/21/23 11:52
[2023-05-03] MEDS: PALIPERIDONE 3 MG TAB.ER.24 PO SCH ×2 (09:18→21:43)
[2023-05-03] MEDS: NICOTINE 14MG/24HR PATCH TRANSDERM SCH (09:18)
[2023-05-04] MEDS: NICOTINE 14MG/24HR PATCH TRANSDERM SCH (09:01)
[2023-05-04] MEDS: PALIPERIDONE 3 MG TAB.ER.24 PO SCH ×2 (09:01→21:19)
--- NOTE | 2023-05-04 17:55 | P.PN ---
Progress Note - Text Progress Note Date: 05/03/23 Interval history: Patient was seen isolating to his room, resting in his bed in the dark in the middle of the day. On awakening, he is irritable and dismissive. He is noncompliant with his medications and does not want to start taking them. He demonstrates poor insight and judgment. When asked about hallucinations, he states "that's a stupid question" and refuses to answer. When asked about suicidal or homicidal ideation, he states "that's also a stupid question" and refuses to answer. Mental status exam: General Appearance: Patient appears to be stated age, disheveled, laying in bed. Behavior: No agitated behavior, however he appears guarded, irritable, dismissive and mostly uncooperative. Speech: Patient's speech is fluent and non-pressured, with loud and irritable tone. Mood/Affect: Mood is irritable and on edge, affect is congruent and constricted. Suicidality/Homicidality: Refuses to answer and states "that's a stupid question!" Perceptions: Refuses to answer and states "that's a stupid question!" Though content/process: He appears paranoid and mistrusting, and thought process is generally linear. Memory and concentration: AOX3, grossly intact for the purposes of this session. Judgment and insight: Poor Assessment/Plan: Continue with current diagnosis. Patient continues to meet criteria for inpatient psychiatric admission for symptom stabilization and safety. Patient is currently refusing medications and is uncooperative with treatment. He will require a court order for medications due to noncompliance with treatment. Monitor for medication compliance and for any psychotropic medication side effects if he chooses to start medications. Will continue to monitor ongoing response to treatment. Encouraged participation in milieu.
--- NOTE | 2023-05-04 17:58 | P.PN ---
Progress Note - Text Progress Note Date: 05/04/23 Interval history: Patient was seen isolating to his room again today, asleep in bed in the dark in the middle of the day. On awakening, he is drowsy and passively engaged during this assessment. He continues to be noncompliant with his medications and does not want to start taking them. He demonstrates poor insight and judgment. No answer to hallucination or lethality questions. He remains uncooperative with treatment. Mental status exam: General Appearance: Patient appears to be stated age, disheveled, laying in bed. Behavior: No agitated behavior, however he appears guarded, passively engaged and mostly uncooperative. Speech: Patient's speech is fluent and non-pressured. Mood/Affect: Mood is irritable and on edge, affect is congruent and constricted. Suicidality/Homicidality: No answer Perceptions: No answer Though content/process: He appears mistrusting, and thought process is generally linear. Memory and concentration: AOX3, grossly intact for the purposes of this session. Judgment and insight: Poor Assessment/Plan: Continue with current diagnosis. Patient continues to meet criteria for inpatient psychiatric admission for symptom stabilization and safety. Patient is currently refusing medications and is uncooperative with treatment. He will require a court order for medications due to noncompliance with treatment. Monitor for medication compliance and for any psychotropic medication side effects if he chooses to start medications. Will continue to monitor ongoing response to treatment. Encouraged participation in milieu.
[2023-05-05] MEDS: NICOTINE 14MG/24HR PATCH TRANSDERM SCH (09:38)
[2023-05-05] MEDS: PALIPERIDONE 3 MG TAB.ER.24 PO SCH ×2 (09:38→21:09)
--- NOTE | 2023-05-05 10:33 | P.PN ---
Progress Note - Text Progress Note Date: 05/05/23 Interval History: Patient was seen laying in bed and was uncooperative with ticket writer again today. Patient is refusing all meds. When asked patient how he was feeling patient stated he was fine. Patient hesitant and irritable with ticket writer. When asked if he is hearing voices, he said, "I can hear your voice" Refused to answer further questions. Continues to have very poor insight and judgment. Mainly isolating to his room. Does come out for most meals. Patients full hearing is Sunday 05/07 at 0930 Mental Status Exam: General Appearance: Patient appears to be stated age is alert, does not cooperate. Patient appears to have poor hygiene and grooming. Disheveled. Behavior: hostile, angry, inappropriate uncooperative, irritable Speech: Patient's speech is fluent and nonpressured. concrete, threatening tone. mocking. Mood/Affect: mood is "fine", affect is congruent and constricted. Suicidality/Homicidality: patient refused to answer Perceptions: patient refused to answer Though content/process: There is evidence of delusional thought content Memory and concentration: unable to gather Judgment and insight: poor/impulsive IMPRESSIONS: schizophrenia cannabis use disorder nicotine dependance PLAN: -Patient is admitted under involuntary status to [facility] for stabilization of psychiatric symptoms and safety. Patient has not signed adult voluntary form and medication consent and is placed in patient's chart. -Medications : Invega 3 po bid for mood stabilization/psychosis. trazadone 100mg qhs prn for insomnia. Patient is refusing medications. -Ativan and Haldol PRN for agitation/aggression -NRT - nicotine patch -SW on board for discharge planning. Encouraged the patient to participate in milieu. Full hearing 05/07, patient did not defer with county attorney.
[2023-05-06] MEDS: NICOTINE 14MG/24HR PATCH TRANSDERM SCH (08:28)
[2023-05-06] MEDS: PALIPERIDONE 3 MG TAB.ER.24 PO SCH ×2 (08:28→21:00)
--- NOTE | 2023-05-06 10:29 | P.PN ---
Progress Note - Text Progress Note Date: 05/06/23 Interval History: Patient was seen laying in bed and was more cooperative with scientific technical writer today.Patient was not argumentative, and when asked how his mood was, he replied "all right" . Patient is still refusing all meds. Patient stated the voices he hears are the same ones as always. Patient offered no complaints. Continues to have very poor insight and judgment. Mainly isolating to his room. Does come out for most meals. Patients full hearing is Sunday 05/07 at 0930. Patient denies SI/HI, denies visual hallucinations, endorses auditory hallucinations. Mental Status Exam: General Appearance: Patient appears to be stated age is alert, does not cooperate. Patient appears to have poor hygiene and grooming. Disheveled. Behavior: hostile, angry, inappropriate uncooperative, irritable Speech: Patient's speech is fluent and nonpressured. concrete, threatening tone. mocking. Mood/Affect: mood is "allright", affect is congruent and constricted. Suicidality/Homicidality: no HI/SI Perceptions: Patient denied VH, endorses AH Though content/process: There is evidence of delusional thought content Memory and concentration: unable to gather Judgment and insight: poor/impulsive IMPRESSIONS: schizophrenia cannabis use disorder nicotine dependance PLAN: -Patient is admitted under involuntary status to [facility] for stabilization of psychiatric symptoms and safety. Patient has not signed adult voluntary form and medication consent and is placed in patient's chart. -Medications : Invega 3 po bid for mood stabilization/psychosis. trazadone 100mg qhs prn for insomnia. Patient is refusing medications. -Ativan and Haldol PRN for agitation/aggression -NRT - nicotine patch -SW on board for discharge planning. Encouraged the patient to participate in milieu. Full hearing 05/07, patient did not defer with civil rights attorney.
[2023-05-07] MEDS: NICOTINE 14MG/24HR PATCH TRANSDERM SCH (07:52)
[2023-05-07] MEDS: PALIPERIDONE 3 MG TAB.ER.24 PO SCH (07:52)
[2023-05-07] MEDS ORDERED: HALOPERIDOL LACTATE 5 MG/ML 1 ML VIAL IM PRN (11:46)
--- NOTE | 2023-05-07 12:07 | P.PN ---
Progress Note - Text Progress Note Date: 05/07/23 Interval History: Patient was seen in his room, staring out his window, and was slightly more cooperative with adjusto writer operator today. patient continues to be responding to internal stimuli. Patient was not argumentative, and when asked how his mood was, he replied "ok" . Patient is still refusing all meds, however, he was placed on a court order today, and appointed a temporary public guardian. Claims Specialist asked the patient if he understood what the court hearing was about, patient replies "Yeah, it's the same as always" Claims Specialist asked the patient if he thinks he needs medication, patient told adjusto writer operator that he don't need medication, but everyone else does. Patient offered no other complaints, and had no questions for the adjusto writer operator. Continues to have very poor insight and judgment. Mainly isolating to his room. Does come out for most meals. Patient states he is sleeping well, and his a ppetite is good.. Patient denies SI/HI, denies visual hallucinations, endorses auditory hallucinations. Mental Status Exam: General Appearance: Patient appears to be stated age is alert, dressed in h ospital gown. Patient appears to have poor hygiene and grooming. Disheveled. Behavior: hostile, angry, inappropriate uncooperative, irritable mildly improving Speech: Patient's speech is fluent and nonpressured. concrete. Mood/Affect: mood is "ok", affect is congruent and constricted. Suicidality/Homicidality: no HI/SI Perceptions: Patient denied VH, endorses AH Though content/process: There is evidence of delusional thought content Memory and concentration: unable to gather Judgment and insight: poor/impulsive IMPRESSIONS: schizophrenia cannabis use disorder nicotine dependance PLAN: -Patient is admitted under involuntary status to [facility] for stabilization of psychiatric symptoms and safety. Patient has not signed adult voluntary form and medication consent and is placed in patient's chart. -Medications : Invega 6 po qhs for mood stabilization/psychosis. trazadone 100mg qhs prn for insomnia. If patient refuses PO invega, give Haldol 5mg IM, as patient is on court order. -Ativan and Haldol PRN for agitation/aggression -NRT - nicotine patch -SW on board for discharge planning. Encouraged the patient to participate in milieu. Court ordered on 05/07, appointed a temporary public guardian.
[2023-05-07] MEDS: PALIPERIDONE 6 MG TAB.ER.24 PO SCH (19:58)
[2023-05-08] MEDS: NICOTINE 14MG/24HR PATCH TRANSDERM SCH (07:50)
--- NOTE | 2023-05-08 09:19 | P.PN ---
Progress Note - Text Progress Note Date: 05/08/23 Interval history: Patient was seen in his room, resting in bed, and was mildly more cooperative w ith senior copywriter today. he was covered in his blankets and did not get up from the bed. Patient was not argumentative, and when asked how his mood was, he replied "alright, man" . Patient on a court order, and was compliant taking oral medication last night. Patient offered no other complaints, and had no questions for the senior copywriter. Continues to have poor insight and judgment. Isolating to his room mainly, not socializing. Does come out for most meals. Patient states he is sleeping well, and his appetite is good. Patient denies SI/HI, denies visual hallucinations, endorses auditory hallucinations. Mental Status Exam: General Appearance: Patient appears to be stated age is alert, dressed in hospital gown. Patient appears to have poor hygiene and grooming. Disheveled. Behavior: hostile, angry, inappropriate uncooperative, irritable mildly improving Speech: Patient's speech is fluent and nonpressured. concrete. Mood/Affect: mood is "ok man", affect is congruent and constricted. Suicidality/Homicidality: no HI/SI Perceptions: Patient denied VH, endorses AH Though content/process: There is evidence of delusional thought content, patient talking to himself, stating he don't need meds, everyone else does. Memory and concentration: unable to gather Judgment and insight: poor/impulsive, improving mildly IMPRESSIONS: schizophrenia cannabis use disorder nicotine dependance PLAN: -Patient is admitted under involuntary status to [facility] for stabilization of psychiatric symptoms and safety. Patient has not signed adult voluntary form and medication consent and is placed in patient's chart. -Medications : Invega 6 po qhs for mood stabilization/psychosis. trazadone 100mg qhs prn for insomnia. If patient refuses PO invega, give Haldol 5mg IM, as patient is on court order. -Ativan and Haldol PRN for agitation/aggression -NRT - nicotine patch - on board for discharge planning. Encouraged the patient to participate in milieu. Court ordered on 05/07, appointed a temporary public guardian. Court order expires 11/03/23
[2023-05-08] MEDS: PALIPERIDONE 6 MG TAB.ER.24 PO SCH (20:20)
[2023-05-09] MEDS: NICOTINE 14MG/24HR PATCH TRANSDERM SCH (07:52)
--- NOTE | 2023-05-09 12:00 | P.PN ---
Progress Note - Text Progress Note Date: 05/09/23 Interval history: Patient was seen in his room, agreeable to speak with teletypewriter installer, and was much more cooperative with teletypewriter installer today. Patient was showered, and dressed in clothes, and laying in bed resting. Patient stated that he's doing well today. Patient was not argumentative. Patient appears to be improving mildly psychiatrically. Patient on a court order, and has been compliant taking oral medication since put on the order. Patient offered no other complaints, and had no questions for the teletypewriter installer. Isolating to his room mainly, not socializing. Does come out for meals. Patient states he is sleeping well, and his appetite is good. Patient denies SI/HI, denies visual hallucinations, denies auditory hallucinations. claims that he has not called his mother yet since being on the unit and was encouraged to do so today. Mental Status Exam: General Appearance: Patient appears to be stated age is alert, dressed in hospital gown. Patient appears to have improving hygiene and grooming. Improving Behavior: less irritable mildly improving, superficial. more cooperative. Speech: Patient's speech is fluent and nonpressured. concrete. mildly improving Mood/Affect: mood is "pretty good", affect is congruent and constricted, improving mildly Suicidality/Homicidality: no HI/SI Perceptions: Patient denied VH, denies AH Though content/process: There is evidence of delusional thought content, concrete. no paranoia. Memory and concentration: AOx3, fair attention span. Judgment and insight: poor, improving mildly IMPRESSIONS: schizophrenia cannabis use disorder nicotine dependance PLAN: -Patient is admitted under involuntary status to MHU for stabilization of psychiatric symptoms and safety. Patient has not signed adult voluntary form and medication consent and is placed in patient's chart. -Medications : Invega 6 po qhs for mood stabilization/psychosis, consider increasing over the weekend if needed. trazadone 100mg qhs prn for insomnia. If patient refuses PO invega, give Haldol 5mg IM, as patient is on court order. order to check for cheeking of meds. -Ativan and Haldol PRN for agitation/aggression -NRT - nicotine patch -SW on board for discharge planning. Encouraged the patient to participate in milieu. Court ordered on 05/07, appointed a temporary public guardian. Court order expires 11/03/23. will explore the possiblity for patient to be discharged back to [facility] next week if he continues to improve. Patient will need to be transitioned on HOPKINS prior to discharge.
[2023-05-09] MEDS: PALIPERIDONE 6 MG TAB.ER.24 PO SCH (20:47)
[2023-05-10] MEDS: NICOTINE 14MG/24HR PATCH TRANSDERM SCH (08:00)
[2023-05-10] MEDS ORDERED: PALIPERIDONE IM 234 MG/1.5 ML SYG IM STA (10:49)
--- NOTE | 2023-05-10 10:51 | P.PN ---
Progress Note - Text Progress Note Date: 05/10/23 Interval history: Patient was seen in his room, agreeable to speak with commercial insurance underwriter, and was much more cooperative with commercial insurance underwriter today. Patient appears to be more appropriate today during interaction. He was dressed in clothing. Grooming and hygiene and grooming. He continues to be somewhat concrete however was stating that he is feeling a bit better. Denying any depression or anxiety today. We spoke about transitioning on to a long-acting injection and patient was agreeable to it, he was given the risks and benefits. he has been compliant taking oral medication since put on the order. Patient offered no other complaints, and had no questions for the commercial insurance underwriter. Isolating to his room mainly, obi farley Does come out for meals. Patient states he is sleeping well, and his appetite is good. Patient denies SI/HI, denies visual hallucinations, denies auditory hallucinations. claims that he has not called his mother yet since being on the unit and was encouraged to do so today. Mental Status Exam: General Appearance: Patient appears to be stated age is alert, dressed in hospital gown. Patient appears to have improving hygiene and grooming. Improving Behavior: less irritable mildly improving, more cooperative. Speech: Patient's speech is fluent and nonpressured. concrete. mildly improving Mood/Affect: mood is "good", affect is congruent and constricted, improving mildly Suicidality/Homicidality: no HI/SI Perceptions: Patient denied VH, denies AH Though content/process: There is evidence of delusional thought content, concrete. no paranoia. Memory and concentration: AOx3, fair attention span. Judgment and insight: poor, improving mildly IMPRESSIONS: schizophrenia cannabis use disorder nicotine dependance PLAN: -Patient is admitted under involuntary status to MHU for stabilization of psychiatric symptoms and safety. Patient has not signed adult voluntary form and medication consent and is placed in patient's chart. -Medications : Invega 6 po qhs for mood stabilization/psychosis, patient is agreeable to be transitioned onto Invega Sustenna to help ensure compliance. We'll give 234 mg IM loading dose today. trazadone 100mg qhs prn for insomnia. If patient refuses PO invega, give Haldol 5mg IM, as patient is on court order. order to check for cheeking of meds. -Ativan and Haldol PRN for agitation/aggression -NRT - nicotine patch -SW on board for discharge planning. Encouraged the patient to participate in milieu. Court ordered on 05/07, appointed a temporary public guardian. Court order expires 11/03/23. will explore the possiblity for patient to be discharged back to [facility] next week if he continues to improve. Patient will need to be transitioned on HOPKINS prior to discharge.
[2023-05-10] MEDS: PALIPERIDONE 6 MG TAB.ER.24 PO SCH (20:34)
[2023-05-11] MEDS: NICOTINE 14MG/24HR PATCH TRANSDERM SCH (07:57)
--- NOTE | 2023-05-11 11:38 | P.PN ---
Progress Note - Text Progress Note Date: 05/11/23 Interval history: Patient was seen in his room lying in the bed, agreeable to speak with development writer, and was much more cooperative with development writer today. Patient received Invega Sustenna loading dose yesterday and apparently tolerated well. He is not reporting any side effects at this time. Claims that he is able to sleep fairly last night. Patient appears to be more appropriate today during interaction. He was dressed in clothing. Grooming and hygiene and grooming. He continues to be somewhat concrete. Denying any depression or anxiety today. Continues to be Isolating to his room mainly, however Does come out for meals. Patient states he is sleeping well, and his appetite is good. Patient denies SI/HI, denies visual hallucinations, denies auditory hallucinations. claims that he has not called his mother yet since being on the unit and was encouraged to do so today. Mental Status Exam: General Appearance: Patient appears to be stated age is alert, dressed in hospital gown. Patient appears to have improving hygiene and grooming. Improving Behavior: less irritable mildly improving, more cooperative. Speech: Patient's speech is fluent and nonpressured. concrete. mildly improving Mood/Affect: mood is "ok", affect is congruent and constricted, improving mildly Suicidality/Homicidality: no HI/SI Perceptions: Patient denied VH, denies AH Though content/process: There is evidence of delusional thought content, concrete. no paranoia. Memory and concentration: AOx3, fair attention span. Judgment and insight: Chronically poor, improving mildly IMPRESSIONS: schizophrenia cannabis use disorder nicotine dependance PLAN: -Patient is admitted under involuntary status to MHU for stabilization of psychiatric symptoms and safety. Patient has not signed adult voluntary form and medication consent and is placed in patient's chart. -Medications : decrease Invega 3 po qhs for mood stabilization/psychosis then d/c tomorrow, Pt received 234 mg IM loading dose on 05/10 and next dose will be due friday. trazadone 100mg qhs prn for insomnia. If patient refuses PO invega, give Haldol 5mg IM, as patient is on court order. order to check for cheeking of meds. -Ativan and Haldol PRN for agitation/aggression -NRT - nicotine patch -SW on board for discharge planning. Encouraged the patient to participate in milieu. Court ordered on 05/07, appointed a temporary public guardian. Court order expires 11/03/23. will explore the possiblity for patient to be discharged back to [facility] next week if he continues to improve. Patient will need to be transitioned on HOPKINS prior to discharge. likely discharge friday vs friday.
[2023-05-11] MEDS: PALIPERIDONE 3 MG TAB.ER.24 PO SCH (20:42)
[2023-05-12] MEDS: NICOTINE 14MG/24HR PATCH TRANSDERM SCH (07:35)
--- NOTE | 2023-05-12 11:09 | P.PN ---
Progress Note - Text Progress Note Date: 05/12/23 (Telepsychiatry) This was a telepsychiatry visit. The quality of the audio and visual connection was good to excellent. Chart reviewed. Mr. Dominguez is a 37-year-old male admitted to psychiatric unit involuntarily. According to the medical record, he was disorganized, agitated and refused mental health treatment. Once on the unit, he refused to consent to a voluntary admission and Dr. Burnett proceeded with the involuntary treatment application. He was initially treated with Invega 6 mg daily. He received an injection of Invega 234 mg on 05/10/2023. The oral Invega was then decreased to 3 mg daily. He denied problems or side effects with the Invega. He provided little information. His thinking was disorganized and at times difficult to follow. He denied feeling paranoid and did not express a clear paranoid ideation. When I asked about specific psychotic symptoms such as hallucinations, thought disturbances or paranoia he gave a mixed response. Overall theme of his responses was that he "sometimes" have auditory hallucinations, thought broadcasting and thought control. He presented as a disheveled appearing middle-aged male who is pleasant and cooperative. He is able to attend to the interview. He had a blunted facial expression. He showed no abnormality of psychomotor activity. His speech was spontaneous with normal rate and rhythm. His affect was blunted but stable and appropriate. He was not irritable or angry. No suicidal ideation. No wishes. No homicidal ideation. No depressive cognitions. His thinking was disorganized and nonlinear. He did not appear to be responding to internal stimuli during our interview. Overall he appears much improved than his presentation when he initially arrived to the unit on 04/21/2023. However, his thinking remains disorganized and he is more likely than not experiencing auditory hallucinations, thought insertion, thought broadcasting and thought control. Continue with current treatment eventually discontinuing Invega oral. I concur with Dr. Phan is that he is unlikely to comply with treatment once he is discharged from the hospital. Continue to encourage him to participate in therapeutic groups and activities. Follow-up on a daily basis.
[2023-05-12] MEDS: PALIPERIDONE 3 MG TAB.ER.24 PO SCH (20:56)
[2023-05-13] MEDS: NICOTINE 14MG/24HR PATCH TRANSDERM SCH (07:44)
--- NOTE | 2023-05-13 15:33 | P.PN ---
Progress Note - Text Progress Note Date: 05/13/23 Interval history: Patient reports mood is "good". He reports having slept well and not needing trazodone PRN. He is not reporting any side effects at this time and is agreeable with second dose of Invega HOPKINS due tomorrow. He hopes to return home with his mother upon discharge and then find work. 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 Patient appears to be more appropriate today during interaction, but is vague in responses and repeats "anyways yeah" as an answer to numerous questions. Grooming and hygiene are improved. Denying any depression or anxiety today. Patient states his appetite is good. Patient denies SI/HI, denies visual hallucinations, denies auditory hallucinations. Mental Status Exam: General Appearance: Patient appears to be stated age is alert, dressed in street clothes. Patient appears to have improving hygiene and grooming. Improving Behavior: Calm, cooperative. Speech: Patient's speech is fluent and nonpressured. Mood/Affect: mood is "good", affect is congruent and constricted, improving mildly Suicidality/Homicidality: no HI/SI Perceptions: Patient denied VH, denies AH Though content/process: There is evidence of delusional thought content, concrete. no paranoia. Memory and concentration: AOx3, fair attention span. Judgment and insight: Chronically poor, improving mildly IMPRESSIONS: schizophrenia cannabis use disorder nicotine dependance PLAN: -Patient is admitted under involuntary status to MHU for stabilization of psychiatric symptoms and safety. Patient has not signed adult voluntary form and medication consent and is placed in patient's chart. -Medications : Invega 234 mg IM loading dose on 05/10 and second dose will be due 05/14/23 (orders placed) then monthly Invega HOPKINS thereafter. trazadone 100mg qhs prn for insomnia. If patient refuses PO invega, give Haldol 5mg IM, as patient is on court order. order to check for cheeking of meds. -Ativan and Haldol PRN for agitation/aggression -NRT - nicotine patch -SW on board for discharge planning. Encouraged the patient to participate in milieu. Court ordered on 05/07, appointed a temporary public guardian. Court order expires 11/03/23. will explore the possiblity for patient to be discharged back to [facility] if he continues to improve. Patient will need to be transitioned on HOPKINS prior to discharge. likely discharge tomorrow or .
[2023-05-14] MEDS: NICOTINE 14MG/24HR PATCH TRANSDERM SCH (08:06)
[2023-05-14] MEDS ORDERED: PALIPERIDONE IM 156 MG/ML SYG IM STA (10:35)
[2023-05-14] MEDS ORDERED: PALIPERIDONE IM 156 MG/ML SYG IM ONE (11:00)
[2023-05-14] MEDS ORDERED: PALIPERIDONE IM 234 MG/1.5 ML SYG IM ONE (11:00)
--- NOTE | 2023-05-14 11:07 | P.PN ---
Progress Note - Text Progress Note Date: 05/14/23 Interval history: Patient was seen today in his room. Patient reports mood is "good". He is not reporting any side effects at this time and is agreeable with second dose of Invega HOPKINS due today. Patient appears to be more appropriate today during interaction, but is vague in responses and responds "yeah and ok" as an answer to numerous questions. patient apparently was agitated last night according to nurse report and required a prn haldol dose. Grooming and hygiene are mildly improved. Denying any depression or anxiety today. Patient states his appetite is good. Patient denies SI/HI, states his auditory hallucinations are "the same as usual" and denies visual hallucinations. Mental Status Exam: General Appearance: Patient appears to be stated age is alert, dressed in street clothes. Patient appears to have improving hygiene and grooming. Improving Behavior: Calm, cooperative. Speech: Patient's speech is fluent and nonpressured. Mood/Affect: mood is "ok", affect is congruent and constricted, improving mildly Suicidality/Homicidality: no HI/SI Perceptions: Patient denied VH, states AH are the same as usual Though content/process: There is evidence of delusional thought content, concrete. no paranoia. Memory and concentration: AOx3, fair attention span. Judgment and insight: Chronically poor, improving mildly IMPRESSIONS: schizophrenia cannabis use disorder nicotine dependance PLAN: -Patient is admitted under involuntary status to MHU for stabilization of psychiatric symptoms and safety. Patient has not signed adult voluntary form and medication consent and is placed in patient's chart. -Medications : Invega 234 mg IM loading dose on 05/10 and second dose of 156mg is due today. then monthly Invega HOPKINS 156 mg IM thereafter Next due 06/04 Depakote 500mg qhs for mood stabilization. trazadone 100mg qhs prn for insomnia. -Ativan and Haldol PRN for agitation/aggression -NRT - nicotine patch -SW on board for discharge planning. Encouraged the patient to participate in milieu. Court ordered on 05/07, appointed a temporary public guardian. Court order expires 11/03/23. will explore the possiblity for patient to be discharged back to [facility] house however currently SW unable to get in touch with mother through given number. SW to coordinate with gaurdian today alternative discharge plan. Patient is transitioned on HOPKINS and received two doses. likely discharge Friday.
[2023-05-14] MEDS: DIVALPROEX ER 500 MG TAB.ER.24H PO SCH (20:33)
[2023-05-15] MEDS: NICOTINE 14MG/24HR PATCH TRANSDERM SCH (08:02)
[2023-05-15 10:29] VITALS: BMI 21.9
--- NOTE | 2023-05-15 11:09 | P.PN ---
Progress Note - Text Progress Note Date: 05/15/23 Interval history: Patient was seen today in his room. Before entering the room, remote mortgage underwriter heard keisha lyles responding to internal stimuli, having a full conversation with himself. Patient reports mood is "ok, man". He is not reporting any side effects at this time from his HOPKINS. Patient has been compliant with his psychiatric medications. Patient appears quite irritated today, and is short with his responses . Grooming and hygiene are mildly improved. Denying any depression or anxiety today. Patient states his appetite is good. Patient denies SI/HI, states his auditory hallucinations are "the same as usual" and denies visual hallucinations. Mental Status Exam: General Appearance: Patient appears to be stated age is alert, dressed in street clothes. Patient appears to have improving hygiene and grooming. Improving Behavior: Irritable, mildly cooperative. Speech: Patient's speech is fluent and nonpressured. Mood/Affect: mood is "ok", affect is congruent and constricted, improving mildly Suicidality/Homicidality: no HI/SI Perceptions: Patient denied VH, states AH are the same as usual Though content/process: There is evidence of delusional thought content, concrete. no paranoia. Memory and concentration: AOx3, fair attention span. Judgment and insight: Chronically poor, improving mildly IMPRESSIONS: schizophrenia cannabis use disorder nicotine dependance PLAN: -Patient is admitted under involuntary status to MHU for stabilization of psychiatric symptoms and safety. Patient has not signed adult voluntary form and medication consent and is placed in patient's chart. -Medications : Invega 234 mg IM loading dose on 05/10 and second dose of 156mg given 05/14. then monthly Invega HOPKINS 156 mg IM thereafter Next due 06/04 Depakote 500mg qhs for mood stabilization. trazadone 100mg qhs prn for insomnia. -Ativan and Haldol PRN for agitation/aggression -NRT - nicotine patch -SW on board for discharge planning. Encouraged the patient to participate in milieu. Court ordered on 05/07, appointed a temporary public guardian. Court order expires 11/03/23. will explore the possiblity for patient to be discharged back to [facility] house however currently SW unable to get in touch with mother through given number. patient is continuing to not improve psychiatrically and will continue to work on medication mgt. SW to coordinate with guardian today alternative discharge plan. Patient is transitioned on HOPKINS and received two doses. consider changing antipsychotic.
[2023-05-15] MEDS: DIVALPROEX ER 500 MG TAB.ER.24H PO SCH (20:20)
[2023-05-16] MEDS: DIVALPROEX ER 500 MG TAB.ER.24H PO SCH (20:51)
--- NOTE | 2023-05-16 22:40 | P.PN ---
Progress Note - Text Progress Note Date: 05/16/23 Telehealth disclosure: The psychiatrist provided the location as [place], [place], and credentials, stating, "I am licensed as an Adult Psychiatrist in [facility] The Zoom meeting was locked after the client's arrival. Client Info Confirmation: I verified their name, , and confirm they are at [facility] psychiatric unit. HIPAA & Limitations: Reviewed and discussed with the client as per level of insight Patient Confidentiality: Informed the client that the psychiatrist will not record sessions and confirmed privacy. Interval history: The patient was seen today as coverage for Dr. Burnett. The case was discussed with unit staff. The patient reports normal sleep and appetite. He continues to take his psychiatric medications and denies experiencing any side effects. The patient actively participates in groups and other unit activities. He reports stability in his mood and denies symptoms of depression, anxiety, or drastic mood swings. Additionally, he mentions having steady sleep and a good appetite every day. The patient denies experiencing hallucinations, paranoid ideation, delusions, or manic symptoms. Mental Status Exam: General Appearance: Patient appears to be stated age is alert, dressed in street clothes. Patient appears to have improving hygiene and grooming. Improving Behavior: cooperative. Speech: Patient's speech is fluent and non pressured. Mood/Affect: mood is "fine", affect is congruent and constricted Suicidality/Homicidality: no HI/SI Perceptions: Patient denies VH, or AH. Though content/process: There is evidence of delusional thought content, concrete. no paranoia. Memory and concentration: AOx3, fair attention span. Judgment and insight: Improving IMPRESSIONS: Schizophrenia Cannabis use disorder Nicotine dependance PLAN: Continue inpatient psychiatric hospitalization. Patient is admitted under involuntary status to MHU for stabilization of psychiatric symptoms and safety. Patient has not signed adult voluntary form and medication consent and is placed in patient's chart. Court ordered on 05/07, appointed a temporary public guardian. Court order expires 11/03/23. Implement the following precautions as recommended by the admitting psychiatrist: Elopement and suicide precautions Consult the medical team immediately if any medical concerns arise. Educate the patient on the benefits of participating in groups and other unit activities and encourage active participation. Lab work ordered: Medications: Invega 234 mg IM loading dose on 05/10 and second dose of 156mg given 05/14. then monthly Invega HOPKINS 156 mg IM thereafter Next due 06/04 for psychosis Depakote 500mg qhs for mood stabilization. Trazadone 100mg qhs prn for insomnia. Ativan and Haldol PRN for agitation/aggression NRT - nicotine patch Discharge planning is currently in progress.
--- NOTE | 2023-05-17 19:03 | P.PN ---
Progress Note - Text Progress Note Date: 05/17/23 Interval history: Patient was seen today in his room. Patient states that he is "pretty good ". he denies any concerns. He states that he is sleeping and eating well. He is noted to be isolating to self in the room. However, he is not noted to be responding to internal stimuli at this time. Patient denies side effects to medications and has been compliant. He denies auditory and visual hallucinations. He denies suicidal and homicidal ideation. Mental Status Exam: General Appearance: Patient appears to be stated age is alert, dressed in street clothes. Patient appears to have improving hygiene and grooming. Improving Behavior: Calm, relaxed Speech: Patient's speech is fluent and nonpressured. Mood/Affect: mood is "pretty good", affect is congruent Suicidality/Homicidality: no HI/SI Perceptions: Patient denied VH, no AH Though content/process: Hx of delusions not voiced today, concrete. no paranoia. Memory and concentration: AOx3, fair attention span. Judgment and insight: Chronically poor, improving mildly IMPRESSIONS: schizophrenia cannabis use disorder nicotine dependance PLAN: -Patient is admitted under involuntary status to MHU for stabilization of psychiatric symptoms and safety. Patient has not signed adult voluntary form and medication consent and is placed in patient's chart. -Medications : Invega 234 mg IM loading dose on 05/10 and second dose of 156mg given 05/14. then monthly Invega HOPKINS 156 mg IM thereafter Next due 06/04 Depakote 500mg qhs for mood stabilization. trazadone 100mg qhs prn for insomnia. -Ativan and Haldol PRN for agitation/aggression -NRT - nicotine patch -SW on board for discharge planning. Encouraged the patient to participate in milieu. Court ordered on 05/07, appointed a temporary public guardian. Court order expires 11/03/23. will explore the possiblity for patient to be discharged back to [facility] house however currently SW unable to get in touch with mother through given number. Patient has negative symptoms but is noted to be improving. SW to coordinate with guardian for alternative discharge plan. Patient is transitioned on HOPKINS and received two doses.
[2023-05-17] MEDS: DIVALPROEX ER 500 MG TAB.ER.24H PO SCH (21:22)
--- NOTE | 2023-05-18 17:46 | P.PN ---
Progress Note - Text Progress Note Date: 05/18/23 Interval history: Patient was seen today in his room. Patient states that he is "pretty good ". He provides short brief answers except when discussing he is interested in running. He states that he enjoys exercising and likes to run at least 5 miles. He was encouraged to continue with exercise outpatient particularly to counteract the side effects of Invega and Depakote. He expressed understanding with this. He denies any concerns. He states that he is sleeping and eating well. He is noted to be isolating to self in the room and was encouraged to be out on the milieu and interacting with others. However, he is not noted to be responding to internal stimuli at this time. Patient denies side effects to medications and has been compliant. He denies auditory and visual hallucinations. He denies suicidal and homicidal ideation. Mental Status Exam: General Appearance: Patient appears to be stated age is alert, dressed in street clothes. Patient appears to have improving hygiene and grooming. Improving Behavior: Calm, relaxed Speech: Patient's speech is fluent and nonpressured. Mood/Affect: mood is "pretty good", affect is congruent Suicidality/Homicidality: no HI/SI Perceptions: Patient denied VH, no AH Though content/process: No delusions, concrete. no paranoia. Memory and concentration: AOx3, fair attention span. Judgment and insight: Chronically poor, improving mildly IMPRESSIONS: schizophrenia cannabis use disorder nicotine dependance PLAN: -Patient is admitted under involuntary status to [facility] for stabilization of psychiatric symptoms and safety. Patient has not signed adult voluntary form and medication consent and is placed in patient's chart. -Medications : Invega 234 mg IM loading dose on 05/10 and second dose of 156mg given 05/14. then monthly Invega HOPKINS 156 mg IM thereafter Next due 06/04 Depakote 500mg qhs for mood stabilization. trazadone 100mg qhs prn for insomnia. -Ativan and Haldol PRN for agitation/aggression -NRT - nicotine patch -SW on board for discharge planning. Encouraged the patient to participate in milieu. Court ordered on 05/07, appointed a temporary public guardian. Court order expires 11/03/23. will explore the possiblity for patient to be discharged back to [facility] however currently SW unable to get in touch with mother through given number. Patient has negative symptoms but is noted to be improving throughout the weekend. SW to coordinate with guardian for alternative discharge plan. Patient is transitioned on HOPKINS and received two doses.
[2023-05-18] MEDS: DIVALPROEX ER 500 MG TAB.ER.24H PO SCH (20:51)
--- NOTE | 2023-05-19 17:37 | P.PN ---
Subjective Progress Note Date: 05/19/23 Principal diagnosis: IMPRESSIONS: schizophrenia acute Intermittent explosive disorder cannabis use disorder nicotine dependance Patient Name: Mp Dominguez Date of : 85 Patient Status: Inpatient Attending Provider: Bunny Burnett Date: 05/19/23 Progress Note - Text Progress Note Date: 05/18/23 Interval history: the patient was seen where Tele psych chart was reviewed in case discussed in the nursing staff the patient reports that he was hospitalized because'they said that I needed admission patient is unable to specifically give information and states that he currently lives with his mother and her mother's boyfriend 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 He is noted to be isolating to self in the room and was encouraged to be out on the milieu and interacting with others. However, he is not noted to be responding to internal stimuli at this time. Patient denies side effects to medications and has been compliant. He denies auditory and visual hallucinations. He denies suicidal and homicidal ideation. Mental Status Exam: General Appearance: Patient appears to be stated age is alert, dressed in street clothes. Patient appears to have improving hygiene and grooming. Improving Behavior: Calm, relaxed Speech: Patient's speech is fluent and nonpressured. Mood/Affect: mood is "pretty good", affect is congruent Suicidality/Homicidality: no HI/SI Perceptions: Patient denied VH, no AH Though content/process: patient exhibits some looseness of associations and and denial about his illness Memory and concentration: AOx3, fair attention span. Judgment and insight: Chronically poor, improving mildly IMPRESSIONS: schizophrenia cannabis use disorder nicotine dependance PLAN: agree with the current treatment plan as formulated earlier -Patient is admitted under involuntary status to [facility] for stabilization of psychiatric symptoms and safety. Patient has not signed adult voluntary form and medication consent and is placed in patient's chart. -Medications : Invega 234 mg IM loading dose on 05/10 and second dose of 156mg given 05/14. then monthly Invega HOPKINS 156 mg IM thereafter Next due 06/04 Depakote 500mg qhs for mood stabilization. trazadone 100mg qhs prn for insomnia. -Ativan and Haldol PRN for agitation/aggression -NRT - nicotine patch -SW on board for discharge planning. Encouraged the patient to participate in milieu. Court ordered on 05/07, appointed a temporary public guardian. Court order expires 11/03/23. will explore the possiblity for patient to be discharged back to [facility] house however currently SW unable to get in touch with mother through given number. Patient has negative symptoms but is noted to be improving throughout the weekend. SW to coordinate with guardian for alternative discharge plan. Patient is transitioned on HOPKINS and received two doses. Clayton Jay MD 05/19/2023 Objective - Vital Signs Vital signs: Vital Signs Temp 97.1 F L 05/19/23 06:49 Pulse 68 05/19/23 06:49 Resp 14 05/19/23 06:49 BP 149/83 05/19/23 06:49 Pulse Ox 98 05/19/23 06:49 FiO2 - Labs CBC & Chem 7: 04/21/23 11:52 04/21/23 11:52
[2023-05-19] MEDS: DIVALPROEX ER 500 MG TAB.ER.24H PO SCH (22:21)
--- NOTE | 2023-05-20 13:41 | P.PN ---
Subjective Progress Note Date: 05/20/23 Principal diagnosis: IMPRESSIONS: schizophrenia acute Intermittent explosive disorder cannabis use disorder nicotine dependance Patient Name: Mp Dominguez Date of : 85 Patient Status: Inpatient Attending Provider: Bunny Burnett Date: 05/20/23 Progress Note - Text Progress Note Date: 05/18/23 Interval history: the patient was seen where Tele psych chart was reviewed in case discussed in the nursing staff Patient reports that he does not feel that he needed to be in the hospital that he was forced to be in here he reports that he has no issues or concerns and does not even feel that he needs to take any treatment he says that he sometimes talks to himself but people misconstrue him as having problems 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 Patient appears to have improving hygiene and grooming. Improving Behavior: Calm, relaxed Speech: Patient's speech is fluent and nonpressured. Mood/Affect: mood is "pretty good", affect is congruent Suicidality/Homicidality: no HI/SI Perceptions: Patient denied VH, no AH Though content/process: patient exhibits some looseness of associations and and denial about his illness Memory and concentration: AOx3, fair attention span. Judgment and insight: Chronically poor, improving mildly IMPRESSIONS: schizophrenia cannabis use disorder nicotine dependance PLAN: agree with the current treatment plan as formulated earlier -Patient is admitted under involuntary status to [facility] for stabilization of psychiatric symptoms and safety. Patient has not signed adult voluntary form and medication consent and is placed in patient's chart. -Medications : Invega 234 mg IM loading dose on 05/10 and second dose of 156mg given 05/14. then monthly Invega HOPKINS 156 mg IM thereafter Next due 06/04 Depakote 500mg qhs for mood stabilization. trazadone 100mg qhs prn for insomnia. -Ativan and Haldol PRN for agitation/aggression -NRT - nicotine patch -SW on board for discharge planning. Encouraged the patient to participate in milieu. Court ordered on 05/07, appointed a temporary public guardian. Court order expires 11/03/23. will explore the possiblity for patient to be discharged back to mothers house however currently SW unable to get in touch with mother through given number. Patient has negative symptoms but is noted to be improving throughout the weekend. SW to coordinate with guardian for alternative discharge plan. Patient is transitioned on HOPKINS and received two doses. Clayton Jay MD 05/20/2023 Objective - Vital Signs Vital signs: Vital Signs Temp 97.1 F L 05/19/23 06:49 Pulse 68 05/19/23 06:49 Resp 14 05/19/23 06:49 BP 149/83 05/19/23 06:49 Pulse Ox 98 05/19/23 06:49 FiO2 - Labs CBC & Chem 7: 04/21/23 11:52 04/21/23 11:52
[2023-05-20] MEDS: DIVALPROEX ER 500 MG TAB.ER.24H PO SCH (20:06)
[2023-05-21 07:34] VITALS: TEMP 97.8
--- NOTE | 2023-05-21 14:57 | P.PN ---
Subjective Progress Note Date: 05/21/23 Principal diagnosis: IMPRESSIONS: schizophrenia acute Intermittent explosive disorder cannabis use disorder nicotine dependance Patient Name: Mp Dominguez Date of : 85 Patient Status: Inpatient Attending Provider: Bunny Burnett Date: 05/21/23 Interval history: The patient was seen chart was reviewed in case discussed with the nursing staff patient reports that he still feels that he does not really need any medications although he will take the shot new line he admits that he is been court ordered staff also reported that the patient is not allowed to go back to his mother and that he may have to [facility] to the [facility] patient stated that he has been to the [facility] in the past several times and has no problems with it he admits that he does use cannabis on a daily basis 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 Patient appears to have improving hygiene and grooming. Improving Behavior: Calm, relaxed Speech: Patient's speech is fluent and nonpressured. Mood/Affect: Flat, affect is congruent Suicidality/Homicidality: no HI/SI Perceptions: Patient denied VH, no AH Though content/process: patient exhibits some looseness of associations and and denial about his illness Memory and concentration: AOx3, fair attention span. Judgment and insight: Chronically poor, improving mildly IMPRESSIONS: schizophrenia cannabis use disorder nicotine dependance PLAN: agree with the current treatment plan as formulated earlier -Patient is admitted under involuntary status to [facility] for stabilization of psy chiatric symptoms and safety. Patient has not signed adult voluntary form and medication consent and is placed in patient's chart. -Medications : Invega 234 mg IM loading dose on 05/10 and second dose of 156mg given 05/14. then monthly Invega HOPKINS 156 mg IM thereafter Next due 06/04 Depakote 500mg qhs for mood stabilization. trazadone 100mg qhs prn for insomnia. -Ativan and Haldol PRN for agitation/aggression -NRT - nicotine patch -SW on board for discharge planning. Encouraged the patient to participate in milieu. Court ordered on 05/07, appointed a temporary public guardian. Court order expires 11/03/23. will explore the possiblity for patient to be discharged back to mothers house however currently SW unable to get in touch with mother through given number. Patient has negative symptoms but is noted to be improving throughout the weekend. SW to coordinate with guardian for alternative discharge plan. Patient is transitioned on HOPKINS and received two doses. Review with the nursing staff and social media director regarding the new development with placement in a [facility] Clayton Jay MD Objective - Vital Signs Vital signs: Vital Signs Temp 97.8 F 05/21/23 07:05 Pulse 87 05/21/23 07:05 Resp 14 05/21/23 07:05 BP 150/87 05/21/23 07:05 Pulse Ox 99 05/21/23 07:05 FiO2 - Labs CBC & Chem 7: 04/21/23 11:52 04/21/23 11:52
[2023-05-21] MEDS: DIVALPROEX ER 500 MG TAB.ER.24H PO SCH (20:19)
[2023-05-22 06:56] VITALS: BP 145/85; PULSE 65; RESP 16
--- NOTE | 2023-05-22 15:12 | P.DS ---
Providers Date of admission: 04/21/23 21:28 Attending physician: Bunny Burnett MD Consults: 04/21/23 21:36 Consult Physician Routine Consulting Provider: Paz Gonzalez Consult Reason/Comments: H&P and medical Do you want consulting provider notified?: Yes Primary care physician: Stated None - Discharge Diagnosis(es) (1) Schizophrenia Current Visit: Yes Status: Chronic Priority: Medium Hospital Course: Patient Name: Mp Dominguez Date of : 85 Patient Status: Inpatient Attending Provider: Bunny Burnett Date: 05/21/23 14:54 Initialization Date: 05/21/23 14:54 Subjective Progress Note Date: 05/22/23 Principal diagnosis: IMPRESSIONS: schizophrenia acute Intermittent explosive disorder cannabis use disorder nicotine dependance discharge note:/HOSPITL COURSE after hospitalization patient received a routine physical examination please review the initial note from the internists for further details psychiatric problems and fight included psychomotor agitation dysphoria feelings of helplessness hopelessness and suicidal ideations patient is well aware of substance use problems and its contributing factor to her depression and anxiety patient responded favorably to the current management where at the time of discharge patient was not suicidal or homicidal her formal and operational judgment and insight appears to have improved patient has made appropriate plans for follow-up and mental health services and substance use program she was discharged in stable condition with recommendations to follow up as directed GENERAL INSTRUCTIONS No eps, trewmors . signs of td noted . have discussed effects and side effects , and precautions inc with sedation and driving PT is not suicidal or homicidal at this time and does not meet the criteria for involuntary hospitalization. Have discussed crisis intervention and appropriate contacts in case of emergency . also discussed ther importance of supportive councelling , CBT and medication compliance Mental Status Exam: General Appearance: Patient appears to be stated age is alert, dressed in street clothes. Patient appears to have improving hygiene and grooming. Improving Behavior: Calm, relaxed Speech: Patient's speech is fluent and nonpressured. Mood/Affect: Flat, affect is congruent Suicidality/Homicidality: no HI/SI Perceptions: Patient denied VH, no AH Though content/process: patient exhibits some looseness of associations and and denial about his illness Memory and concentration: AOx3, fair attention span. Judgment and insight: Chronically poor, improving mildly IMPRESSIONS: schizophrenia cannabis use disorder nicotine dependance NEED FOR ZOOLOGY TEACHER CARE ALTHOUGH PT HAS BEEN MENTIONED STABLE HERE . THE PT CONTINUES TO HAVE RESIDUAL SYMPTOMS THAT ARE ONGOING OR SUBDUED AND WOULD EASILY FLARE UP ON MINOR TRIGGERING EVENTS . PT COPING SKILLS ARE LIMITED . PT IS SIGNIFICANTLY LIMITED IN SOCIAL VOCATIONAL AND OCCUPATIONAL CAPACITY . PT IS RECOMMENDED FOR CONTINUATION OF ONGOING THERAPY INVOLVING DIFFERENT TECHNIQUES LIKE CBT SUPPORTIVE RELAXATION TECH AND MEDICATION WITHOUT WHICH THERE IS A GOOD LIKLIHOOD OF A QUICK RELAPSE OR DECOMPENSATION . Clayton Jay MD Patient Condition at Discharge: Fair Plan - Discharge Summary Discharge Rx Participant: Yes New Discharge Prescriptions: New Divalproex ER [Depakote ER] 500 mg PO HS 30 Days #30 tab No Action Paliperidone IM [Invega Sustenna] 156 mg IM QMONTHLY Discharge Medication List Divalproex ER [Depakote ER] 500 mg PO HS 30 Days #30 tab 05/22/23 [Rx] Paliperidone IM [Invega Sustenna] 156 mg IM QMONTHLY 05/22/23 [History] Follow up Appointment(s)/Referral(s): [facility] [Outside] - 05/28/23 11:00 am (with intake) [facility] [NON-STAFF] - 1 Week Patient Instructions/Handouts: How to Stop Smoking (DC), Schizophrenia (DC), Cannabis Abuse (DC) Activity/Diet/Wound Care/Special Instructions: Avoid the use of street drugs and alcohol. Take all medications as prescribed. When you are in need of refills on your medications, please contact your medical provider and/or outpatient psychiatrist/provider to have this done. Please go to your scheduled outpatient appointment for aftercare treatment. If symptoms return or become worse, call the crisis line at and/or go to the nearest emergency room for evaluation. National Suicide Hotline 988. Need to go to [facility] for injection on 06-04-23. [place] called in to [facility]. Discharge Disposition: HOME SELF-CARE
== END 2023-05-22 15:40 | disposition home or self-care (01) | DRG 750 ==
LOC: EC 10:59 → 3MHU 21:28
PROVIDERS: ADMIT Psychiatry & Neurology Psychiatry; ATTEND Psychiatry & Neurology Psychiatry
DX: F20.9 Schizophrenia, unspecified (principal); F60.3 Borderline personality disorder; F63.81 Intermittent explosive disorder; G93.40 Encephalopathy, unspecified; I10 Essential (primary) hypertension; R45.851 Suicidal ideations; Z91.148 Patient's other noncompliance with medication regimen for other reason; Z65.3 Problems related to other legal circumstances; F12.10 Cannabis abuse, uncomplicated; Z59.01 Sheltered homelessness; Z28.21 Immunization not carried out because of patient refusal; Z71.3 Dietary counseling and surveillance; Z11.52 Encounter for screening for COVID-19; F17.200 Nicotine dependence, unspecified, uncomplicated; G47.00 Insomnia, unspecified; R45.1 Restlessness and agitation; Z71.51 Drug abuse counseling and surveillance of drug abuser; D72.829 Elevated white blood cell count, unspecified; R73.9 Hyperglycemia, unspecified
CPT/HCPCS: 36415; 70450; 71046; 80053; 80061; 80306; 80320; 81001; 83036; 84443; 84484; 85025; 87635; 93005; 99285